=== PATIENT | female | born 1990 | race Caucasian/White ===

== ENCOUNTER 2017-02-22 09:53 | Emergency (ER) | payer OTHER ==
[~2017-02-22] VITALS: Ht 154.9 cm; Wt 52.0 kg
[~2017-02-22 09:53] MED LIST: ACID1TAB10 PO; OMEP20CA3 PO; SUCR1TA PO
[2017-02-22] MEDS ORDERED: PROTPAK PO (10:08)
[2017-02-22] MEDS ORDERED: ONDANSETRON 4MG/2ML VIAL (J2405) IV ONE (10:45)
[2017-02-22] MEDS ORDERED: MORPHINE 4 MG/ML 1ML SYRINGE IV PRN (10:45)
[2017-02-22] MEDS ORDERED: CLINDAMYCIN 900 MG in APPROPRIATE DILUENT 1 EA IV ONE (10:45)
[2017-02-22] MEDS ORDERED: NS 1,000 ML IV ONE (10:45)
[2017-02-22 11:10] LABS: BASO % 0.4 % (0.0-1.0); EOS % 2.8 % (0.0-3.0); LARGE UNSTAINED CELL % 0.7 % (0.0-4.0); LYMPH % 6.6 % (24.0-44.0); MEAN CORPUSCULAR HEMOGLOBIN 21.5 pg (27.0-33.0); MEAN CORPUSCULAR HGB CONC 29.3 g/dl (32.0-36.5); MEAN CORPUSCULAR VOLUME 73.5 fl (80.0-96.0); MONO % 2.9 % (0.0-5.0); NEUTROPHILS # 10.9 K/mm3 (1.8-7.7); NEUTROPHILS % 86.6 % (36.0-66.0); PLATELET COUNT, AUTOMATED 166 k/mm3 (150-450); RED CELL DISTRIBUTION WIDTH 15.7 % (11.5-14.5); WHITE BLOOD COUNT 12.6 K/mm3 (4.0-10.0)
[2017-02-22 11:11] LABS: ADD MANUAL DIFFER NO; BASO # 0.1 K/mm3 (0.0-0.2); DIFF SLIDE NUMBER 186; EOS # 0.4 K/mm3 (0.0-0.50); LARGE UNSTAINED CELL # 0.1 K/mm3 (0.0-0.4); LYMPH # 0.8 K/mm3 (1.5-6.5); MONO # 0.4 K/mm3 (0.0-0.8)
[2017-02-22 11:55] LABS: ERYTHROCYTE SEDIMENTATION RATE 54 mm/hr (0-20)
[2017-02-22] MEDS ORDERED: EMLA CREAM 5GM (LIDOCAINE/PRILOCAINE) TOP STA (12:13)
[2017-02-22 13:22] LABS: ALBUMIN 3.2 GM/DL (3.2-5.2); ALBUMIN/GLOBULIN RATIO 0.94 (1.00-1.93); ALKALINE PHOSPHATASE 138 U/L (45-117); ALT/SGPT 20 U/L (12-78); ANION GAP 9 MEQ/L (8-16); AST/SGOT 18 U/L (15-37); BILIRUBIN,DIRECT 0.2 MG/DL (0.0-0.2); BILIRUBIN,TOTAL 0.4 MG/DL (0.2-1.0); BLOOD UREA NITROGEN 8 MG/DL (7-18); CALCIUM LEVEL 8.2 MG/DL (8.5-10.1); CARBON DIOXIDE LEVEL 26 MEQ/L (21-32); CHLORIDE LEVEL 103 MEQ/L (98-107); CREATININE FOR GFR 0.54 MG/DL (0.55-1.02); GLOMERULAR FILTRATION RATE > 60.0 (>60); GLUCOSE, FASTING 80 MG/DL (70-105); POTASSIUM SERUM 3.6 MEQ/L (3.5-5.1); SODIUM LEVEL 138 MEQ/L (136-145); TOTAL PROTEIN 6.6 GM/DL (6.4-8.2)
[2017-02-22] MEDS ORDERED: HYDROmorphone HCL 1 MG/ML SYRINGE (J1170) IV ONE (13:30)
[2017-02-22] MEDS ORDERED: diphenhydrAMINE INJ 50MG/ML VIAL (J1200) IV ONE (13:30)
[2017-02-22] MEDS ORDERED: ACET30TAB PO (13:31)
[2017-02-22] MEDS ORDERED: CLEO300C2 PO (13:31)
[2017-02-22 13:49] VITALS: BP 132/74
== END 2017-02-22 13:50 | disposition home or self-care (01) ==
LOC: M ED 13:39
DX: T22.292A Burn of second degree of multiple sites of left shoulder and upper limb, except wrist and hand, initial encounter (principal); L03.114 Cellulitis of left upper limb; F17.210 Nicotine dependence, cigarettes, uncomplicated; X10.2XXA Contact with fats and cooking oils, initial encounter; Y92.89 Other specified places as the place of occurrence of the external cause; Y93.89 Activity, other specified; Y99.9 Unspecified external cause status

== ENCOUNTER 2017-02-26 04:00 | Inpatient (IN) | payer OTHER ==
[~2017-02-26] VITALS: Ht 154.9 cm; Wt 53.0 kg
[~2017-02-26 04:00] MED LIST changes: +ACET30TAB PO; +CLEO300C2 PO; +PROTPAK PO
[2017-02-26 05:13] LABS: ADD MORPHOLOGY? YES; BASO % 0.3 % (0.0-1.0); EOS # 0.4 K/mm3 (0.0-0.50); EOS % 7.2 % (0.0-3.0); LARGE UNSTAINED CELL # 0.1 K/mm3 (0.0-0.4); LYMPH # 0.9 K/mm3 (1.5-6.5); LYMPH % 13.4 % (24.0-44.0); MEAN CORPUSCULAR HEMOGLOBIN 21.4 pg (27.0-33.0); MEAN CORPUSCULAR VOLUME 73.5 fl (80.0-96.0); MONO # 0.3 K/mm3 (0.0-0.8); MONO % 5.5 % (0.0-5.0); NEUTROPHILS # 4.3 K/mm3 (1.8-7.7); NEUTROPHILS % 71.6 % (36.0-66.0); PLATELET COUNT, AUTOMATED 231 k/mm3 (150-450); RED CELL DISTRIBUTION WIDTH 16.3 % (11.5-14.5)
[2017-02-26 05:15] LABS: ANION GAP 4 MEQ/L (8-16); BLOOD UREA NITROGEN 9 MG/DL (7-18); CALCIUM LEVEL 8.5 MG/DL (8.5-10.1); CARBON DIOXIDE LEVEL 30 MEQ/L (21-32); CHLORIDE LEVEL 104 MEQ/L (98-107); CREATININE FOR GFR 0.52 MG/DL (0.55-1.02); GLOMERULAR FILTRATION RATE > 60.0 (>60); GLUCOSE, FASTING 90 MG/DL (70-105); POTASSIUM SERUM 4.7 MEQ/L (3.5-5.1); SODIUM LEVEL 138 MEQ/L (136-145)
[2017-02-26] MEDS ORDERED: PIPERACILLIN/TAZOBACTAM SOD 3.375 GM in D5W MINI-BAG PLUS 50 ML IV ONE (05:45)
[2017-02-26] MEDS ORDERED: ONDANSETRON 4MG/2ML VIAL (J2405) IV ONE (06:00)
[2017-02-26] MEDS ORDERED: diphenhydrAMINE INJ 50MG/ML VIAL (J1200) As Ordered ONE (06:04)
[2017-02-26] MEDS: MORPHINE 4 MG/ML 1ML SYRINGE IV PRN ×2 (06:12→08:11)
[2017-02-26] MEDS ORDERED: diphenhydrAMINE INJ 50MG/ML VIAL (J1200) IV ONE (06:15)
[2017-02-26] MEDS ORDERED: PROT1TAB2 PO (06:37)
[2017-02-26] MEDS ORDERED: CLEO300C2 PO (06:39)
[2017-02-26] MEDS ORDERED: ACET30TAB PO (06:39)
--- NOTE | 2017-02-26 06:46 | HPEPDOC ---
General Date of Admission Other Providers NONE Attending Physician: SKIP BREWSTER MD Chief Complaint The patient is a 27-year-old female admitted with a reason for visit of Infection In Burn. Source: Patient Exam Limitations: No limitations Timing/Duration: Day(s) (2 days), Getting worse Severity: Severe Associated Symptoms: Fever, Chills, Rash, Weakness History of Present Illness 27-year-old female had a stress from the [place]OT [place] and burned her left arm. She came to the emergency room and given clindamycin and sent back to the home, but her the swelling and that necessary Is Spreading and It Is Becoming More and More Painful. CAD Done Today Emergency Room with More Redness and Worsening of Cellulitis Home Medications Scheduled Pantoprazole Sodium Sesquihydr (Protonix) 40 Mg Tab, 40 MG PO BID, (Reported) Sucralfate (Carafate) 1 Gm Tab, 1 GM PO ACHS, (Reported) Allergies Coded Allergies: Cefazolin (Verified Allergy, Unknown, "feel weird", 02/22/17) Ibuprofen (Verified Allergy, Unknown, due to Gastric Bypass, 02/22/17) Past Medical History Medical History None Surgical History and history of bypass perforated small bowel and repair, cholecystectomy Family History Significant Family History: No pertinent family hx Social History * Smoker: less than 1 pack/day Alcohol: Denies Drugs: denies Recent Travel/Sick Contacts: Denies: Recent travel, Recent sick contacts Psychosocial History: No pertinent psych hx Review of Symptoms Constitutional: Denies: Chills, Fever, Night Sweats Eyes: Denies: Pain, Vision change ENT: Denies: Head Aches, Ear Pain, Dysphagia Skin: Denies: Rash, Lesions, Breakdown Pulmonary: Denies: Dyspnea, Cough Cardiovascular: Denies: Chest Pain, Palpitations, Orthopnea, Paroxysmal Noc. Dyspnea, Lt Headedness Gastrointestinal: Denies: Nausea, Vomiting, Abdominal Pain, Diarrhea Genitourinary: Denies: Dysuria, Frequency, Incontinence, Retention Hematologic: Denies: Bruising, Bleeding Excessively Musculoskeletal: Reports: Arm Pain, Other Symptoms (redness, swelling), Denies: Neck Pain, Back Pain, Joint Pain, Muscle Pain, Spasms Neurological: Denies: Weakness, Numbness, Change in speech, Confusion Psych: Reports: Mood Normal, Denies: Depression, Memory Issues Physical Examination General Exam: Positive: Alert, No Acute Distress Eye Exam: Positive: PERRLA, Conjunctiva & lids normal, EOMI, Negative: Sclera icteric ENT Exam: Positive: Atraumatic, Mucous membr. moist/pink, Pharynx Normal Neck Exam: Positive: Supple, Negative: JVD, thyromegaly Chest Exam: Positive: Clear to auscultation, Normal air movement Heart Exam: Positive: Rate Normal, Regular Rhythm, Normal S1, Normal S2, Negative: Murmurs, Rubs Telemetry: Positive: No significant arrhythmia Abdomen Exam: Positive: Normal bowel sounds, Soft, Negative: Tenderness, Hepatospenomegaly Extremity Exam: Positive: Edema, Normal pulses, Tenderness, Swelling, Other ( multiple bruises and eRYTHema over the whole arm), Negative: Clubbing, Cyanosis Skin Exam: Positive: Nl turgor and temperature, Negative: Breakdown, Lesion Neuro Exam: Positive: Normal Speech, Cranial Nerves 3-12 NL, Reflexes 2+ Psych Exam: Positive: Mental status NL, Mood NL, Oriented x 3 Vital Signs Vital Signs Date Time Temp Pulse Resp B/P (MAP) Pulse Ox O2 Delivery O2 Flow Rate FiO2 02/26/17 06:12 70 20 138/58 100 Room Air 02/26/17 04:17 98.2 Laboratory Data Labs 24H Laboratory Tests 2 02/26/17 04:47: White Blood Count 6.0, Red Blood Count 4.27, Hemoglobin 9.1L, Hematocrit 31.4L, Mean Corpuscular Volume 73.5L, Mean Corpuscular Hemoglobin 21.4L, Mean Corpuscular Hemoglobin Concent 29.0L, Red Cell Distribution Width 16.3H, Platelet Count 231, Neutrophils (%) (Auto) 71.6H, Lymphocytes (%) (Auto) 13.4L, Monocytes (%) (Auto) 5.5H, Eosinophils (%) (Auto) 7.2H, Basophils (%) (Auto) 0.3 , Neutrophils # (Auto) 4.3, Lymphocytes # (Auto) 0.9L, Monocytes # (Auto) 0.3, Eosinophils # (Auto) 0.4, Basophils # (Auto) 0.0, Large Unclassified Cells % 2.0 , Large Unclassified Cells # 0.1 02/26/17 04:48: Anion Gap 4L, Glomerular Filtration Rate > 60.0, Blood Urea Nitrogen 9, Creatinine 0.52L, Sodium Level 138, Potassium Level 4.7, Chloride Level 104, Carbon Dioxide Level 30, Calcium Level 8.5, C-Reactive Protein, Quantitative 3.88H CBC/BMP Laboratory Tests 02/26/17 04:47 Red Blood Count 4.27, Mean Corpuscular Volume 73.5 L, Mean Corpuscular Hemoglobin 21.4 L, Mean Corpuscular Hemoglobin Concent 29.0 L, Red Cell Distribution Width 16.3 H, Neutrophils (%) (Auto) 71.6 H, Lymphocytes (%) (Auto ) 13.4 L, Monocytes (%) (Auto) 5.5 H, Eosinophils (%) (Auto) 7.2 H, Basophils (% ) (Auto) 0.3, Neutrophils # (Auto) 4.3, Lymphocytes # (Auto) 0.9 L, Monocytes # (Auto) 0.3, Eosinophils # (Auto) 0.4, Basophils # (Auto) 0.0 02/26/17 04:48 Calcium Level 8.5 Microbiology Microbiology 02/26/17 Blood Culture, Received Pending 02/26/17 Blood Culture, Received Pending Assessment/Plan 27-year-old female had a burn on left arm and the, not improved with outpatient clindamycin Problems (1) Cellulitis of left upper extremity Status: Acute Problem Specific Plan: Consult Specialist Problem Text: As started giving IV Zosyn and vancomycin. wound care Plan / VTE VTE Prophylaxis Ordered?: Yes Plan IVF: Continue Medications: Start Antibiotics Diagnostics: Repeat Labs in AM Anticipated Discharge: Home RONNY VALLE MD Feb 26, 2017 06:46
[2017-02-26 06:51] LABS: HYPOCHROMASIA 2+; MICROCYTOSIS 2+
--- NOTE | 2017-02-26 08:02 | PHACANCOPD ---
PHARMACY VANCOMYCIN DOSING Pt Demographics Demographics Patient Age:27 , Weight:53.000 , Gender: female Adjusted Body Weight Date: 02/26/17, Adjusted Body Weight: Kg Events Past 24 Hours Events Past 24 Hours: NO: Dialysis, Diuretic Therapy, Change in CrCl, Fever, Elevation in WBC, Pending Diagnostics, Pending Procedures, Other Vancomycin Vancomycin indication: CELLULITIS Vancomycin Target Ranges: 15-20 mcg/ml Vancomycin Load Y/N: No Load Dose Date Time Vancomycin Load Dose: Date: Time: Vancomycin Dose Date: 02/26/17. Current Vancomycin Dose: [1000MG IV Q8H @ 0800] Intermittent Dosing?: No Labs Labs Item Value Date Time White Blood Count 6.0 K/mm3 02/26/17 0447 Creatinine 0.52 MG/DL L 02/26/17 0448 Micro Microbiology 02/26/17 Blood Culture, Received Pending 02/26/17 Blood Culture, Received Pending Creatinine Clearance Date:02/26/17. Creatinine Clearance: [>100ML/MIN]. Pending Labs VANCO TROUGH @ 0700 Assessment and Plan Maintaining Current Dose?: Yes Reason for dose change: No Dose Change Pharmacist Note Pharmacist Note Date: 02/26/17. Pharmacist note: Patient is a 27 yo female presenting with cellulitis and failed a previous therapy with clindamycin. Vanco 1 gram q8h was initiated @ 0800. Trough is scheduled to be drawn after the 3rd dose (02/27 @ 0700). Monitor renal function and adjust dosing as needed. KATIE GILLESPIE PHARMACY Feb 26, 2017 08:02
[2017-02-26] MEDS: VANCOMYCIN HCL 1,000 MG, VIAL MATE ADAPTER 1 EACH in D5W 250 ML IV SCH ×2 (08:10→15:24)
[2017-02-26] MEDS: NICOTINE 14 MG/24 HR TRANSDERMAL TD SCH (09:21)
[2017-02-26] MEDS ORDERED: NS 1,000 ML IV SCH (09:30)
[2017-02-26] MEDS ORDERED: PIPERACILLIN/TAZOBACTAM SOD 3.375 GM in D5W MINI-BAG PLUS 50 ML IV SCH (12:00)
[2017-02-26 14:52] LABS: CONTROL LINE HCG INT CTR LINE PRESENT
[2017-02-26] MEDS: PERCOCET 5MG/325MG TAB PO PRN ×2 (15:22→20:09)
[2017-02-26] MEDS ORDERED: ISOVUE-370 76% 100ML VIAL (Q9967) As Ordered ONE (16:10)
--- NOTE | 2017-02-26 17:11 | REP ---
Clinical: Cellulitis. Technique: Axial contrast enhanced images of the left upper extremity using 100 ml Isovue 370 intravenous contrast material with coronal and sagittal re-formations. Findings: Subcutaneous infiltration is consistent with cellulitis. The underlying muscular compartments appear intact and without intramuscular or tessie fascial collection/inflammatory changes. No abscess. The osseous structures appear intact and without periosteal reaction to suggest osteomyelitis by current examination. Impression: Findings compatible with cellulitis. No drainable collection/abscess or osseous involvement appreciated by current examination. Signed by Butch Stewart MD 02/26/2017 05:02 P
[2017-02-26] MEDS: SILVER SULFADIAZINE 1% CR 50 GM JAR TOP SCH (18:04)
[2017-02-26] MEDS: MORPHINE 2 MG/ML 1ML SYRINGE IV PRN (18:05)
[2017-02-26] MEDS: ONDANSETRON 4MG/2ML VIAL (J2405) IV PRN (20:08)
[2017-02-26 22:00] VITALS: BP 118/57
[2017-02-27] MEDS: VANCOMYCIN HCL 1,000 MG, VIAL MATE ADAPTER 1 EACH in D5W 250 ML IV SCH ×4 (00:11→23:59)
[2017-02-27] MEDS: MORPHINE 2 MG/ML 1ML SYRINGE IV PRN ×4 (00:11→21:48)
[2017-02-27] MEDS: PERCOCET 5MG/325MG TAB PO PRN ×3 (02:52→21:47)
[2017-02-27 06:00] VITALS: BP 118/81
[2017-02-27 07:29] LABS: MEAN CORPUSCULAR HEMOGLOBIN 21.1 pg (27.0-33.0); MEAN CORPUSCULAR HGB CONC 28.2 g/dl (32.0-36.5); MEAN CORPUSCULAR VOLUME 74.8 fl (80.0-96.0); RED CELL DISTRIBUTION WIDTH 16.4 % (11.5-14.5); RETIC HEMOGLOBIN CONTENT CHr 23.6 PG (24-36); RETICULOCYTE % 1.3 % (0.5-1.5); WHITE BLOOD COUNT 5.2 K/mm3 (4.0-10.0)
[2017-02-27 07:49] LABS: ALBUMIN 2.4 GM/DL (3.2-5.2); ALBUMIN/GLOBULIN RATIO 0.73 (1.00-1.93); ALKALINE PHOSPHATASE 127 U/L (45-117); ALT/SGPT 30 U/L (12-78); ANION GAP 6 MEQ/L (8-16); AST/SGOT 29 U/L (15-37); BILIRUBIN,TOTAL 0.1 MG/DL (0.2-1.0); BLOOD UREA NITROGEN 8 MG/DL (7-18); CALCIUM LEVEL 7.6 MG/DL (8.5-10.1); CARBON DIOXIDE LEVEL 28 MEQ/L (21-32); CHLORIDE LEVEL 105 MEQ/L (98-107); CREATININE FOR GFR 0.54 MG/DL (0.55-1.02); FERRITIN 24 NG/ML (8-252); GLOMERULAR FILTRATION RATE > 60.0 (>60); GLUCOSE, FASTING 86 MG/DL (70-105); PERCENT SATURATION 3.9 % (13.2-37.4); POTASSIUM SERUM 4.3 MEQ/L (3.5-5.1); SODIUM LEVEL 139 MEQ/L (136-145); TOTAL IRON BINDING CAPACITY 285 UG/DL (250-450); TOTAL PROTEIN 5.7 GM/DL (6.4-8.2)
[2017-02-27] MEDS: FERROUS SULFATE 325MG TAB PO SCH ×3 (08:52→21:01)
[2017-02-27] MEDS: SILVER SULFADIAZINE 1% CR 50 GM JAR TOP SCH (08:53)
[2017-02-27] MEDS: NICOTINE 14 MG/24 HR TRANSDERMAL TD SCH (08:57)
[2017-02-27] MEDS: PANTOPRAZOLE 40MG TAB (PROTONIX) PO SCH ×2 (10:45→21:01)
[2017-02-27] MEDS: SUCRALFATE 1 GM TAB PO SCH ×3 (13:17→21:01)
[2017-02-27 14:00] VITALS: BP 113/61
--- NOTE | 2017-02-27 14:06 | IPNPDOC ---
Text Note Date of Service The patient was seen on 02/27/17. NOTE Subjective: Pt states swelling and redness is improving. Objective: Vitals: (see below) General: No acute distress, laying comfortably in bed. HEENT: Moist mucous membranes. Neck: No JVD or lymphadenopathy Cardiac: RRR, No murmurs Pulm: Clear to auscultation b/l. No wheezing, rhonchi Abd: NT/ND + BS Ext: Left arm with abrasions, swelling, redness which is marked on admission and improving. Distal pulses improved. No cyanosis. Labs (see below) Images: CT Left arm 02/26/17 Impression: Findings compatible with cellulitis. No drainable collection/abscess or osseous involvement appreciated by current examination. Assessment/Plan 1. Left arm cellulitis- patient states that she had burn from hot grease that pored over while she was carrying the fowler. Questionable whether this is related to a burn given her a distribution of abrasions which may reflect deep scratch ag. Failed outpt therapy. On vancomycin. Zosyn discontinued. Inflammatory markers improving. Areas of cellulitis/erythema/swelling improving. Blood cultures pending. CT Left arm (see above) Dr. Melissa consulted. 2. History of substance abuse- drug screen sent. HIV screen as well as hepatitis C sent. Patient's did consent to HIV screen. 3. History of gastric bypass 4. History of grinding deficiency anemia status post gastric bypass- started on iron sulfate. We will monitor hemoglobin. If hemoglobin continues to decline, we 'll transfuse PRBC tomorrow. DVT prophy: Lovenox VS,Fishbone, I+O VS, Fishbone, I+O Laboratory Tests 02/27/17 06:45 Red Blood Count 3.65 L, Mean Corpuscular Volume 74.8 L, Mean Corpuscular Hemoglobin 21.1 L, Mean Corpuscular Hemoglobin Concent 28.2 L, Red Cell Distribution Width 16.4 H, Calcium Level 7.6 L, Aspartate Amino Transf (AST/SGOT ) 29, Alanine Aminotransferase (ALT/SGPT) 30, Alkaline Phosphatase 127 H, Total Bilirubin 0.1 L, Total Protein 5.7 L, Albumin 2.4 L Vital Signs Date Time Temp Pulse Resp B/P (MAP) Pulse Ox O2 Delivery O2 Flow Rate FiO2 02/27/17 09:13 16 02/27/17 06:00 98.5 71 118/81 (93) 97 Room Air 02/26/17 20:39 99 02/26/17 17:12 0.0 I&O- Last 24 Hours up to 6 AM 02/27/17 05:59 Intake Total 2750 ml Output Total 300 ml Balance 2450 ml SKIP BREWSTER MD Feb 27, 2017 14:06
--- NOTE | 2017-02-27 15:28 | PHACANCOPD ---
PHARMACY VANCOMYCIN DOSING Pt Demographics Demographics Patient Age:27 , Weight:53.000 , Gender: female Adjusted Body Weight Date: 02/26/17, Adjusted Body Weight: Kg Events Past 24 Hours Events Past 24 Hours: NO: Dialysis, Diuretic Therapy, Change in CrCl, Fever, Elevation in WBC, Pending Diagnostics, Pending Procedures, Other Vancomycin Vancomycin indication: CELLULITIS Vancomycin Target Ranges: 15-20 mcg/ml Vancomycin Load Y/N: No Load Dose Date Time Vancomycin Load Dose: Date: Time: Vancomycin Dose Date: 02/27/17. Current Vancomycin Dose: [1gm IV q8h@08] Date: 02/26/17. Current Vancomycin Dose: [1000MG IV Q8H @ 0800] Intermittent Dosing?: No Labs Labs Item Value Date Time Vancomycin Level Trough 17.6 UG/ML 02/27/1745 Creatinine 0.54 MG/DL L 02/27/1745 White Blood Count 5.2 K/mm3 02/27/17 0645 Vital Signs Label Value Date Time Patient Temperature 99.1 degrees F 02/27/17 1400 Temperature Source Core 02/27/17 1400 Micro Microbiology 02/26/17 Blood Culture - Preliminary, Resulted No growth after 24 hours . All specim... 02/26/17 Blood Culture - Preliminary, Resulted No growth after 24 hours . All specim... Creatinine Clearance Date:02/26/17. Creatinine Clearance: [>100ML/MIN]. Pending Labs VANCO TROUGH @ 0700 Assessment and Plan Maintaining Current Dose?: Yes Reason for dose change: No Dose Change Pharmacist Note Pharmacist Note 02/27: patient's trough came back at 17.6 today. This is within target range so we will continue Vancomycin 1gm IV q8h. Blood cultures are still pending, but no growth to date. We will continue to monitor and make adjustments as necessary. Date: 02/26/17. Pharmacist note: Patient is a 27 yo female presenting with cellulitis and failed a previous therapy with clindamycin. Vanco 1 gram q8h was initiated @ 0800. Trough is scheduled to be drawn after the 3rd dose (02/27 @ 0700). Monitor renal function and adjust dosing as needed. ISAC TURPIN PHARMACY Feb 27, 2017 15:28
[2017-02-27] MEDS: ENOXAPARIN 40 MG/0.4 ML SYRINGE (J1650) SC SCH (15:58)
[2017-02-27] MEDS: ONDANSETRON 4MG/2ML VIAL (J2405) IV PRN (15:58)
[2017-02-27 22:00] VITALS: BP 119/73
[2017-02-27] MEDS ORDERED: diphenhydrAMINE 25 MG CAP PO ONE (22:45)
[2017-02-28] MEDS: PERCOCET 5MG/325MG TAB PO PRN ×3 (01:51→21:13)
[2017-02-28] MEDS: MORPHINE 2 MG/ML 1ML SYRINGE IV PRN ×3 (04:10→17:55)
[2017-02-28 06:00] VITALS: BP 100/67
[2017-02-28 06:32] LABS: MEAN CORPUSCULAR HEMOGLOBIN 21.9 pg (27.0-33.0); MEAN CORPUSCULAR HGB CONC 29.6 g/dl (32.0-36.5); RED CELL DISTRIBUTION WIDTH 16.3 % (11.5-14.5); WHITE BLOOD COUNT 4.6 K/mm3 (4.0-10.0)
[2017-02-28 06:53] LABS: ALBUMIN 2.3 GM/DL (3.2-5.2); ALBUMIN/GLOBULIN RATIO 0.68 (1.00-1.93); ALKALINE PHOSPHATASE 120 U/L (45-117); ALT/SGPT 31 U/L (12-78); ANION GAP 5 MEQ/L (8-16); AST/SGOT 21 U/L (15-37); BILIRUBIN,TOTAL 0.2 MG/DL (0.2-1.0); BLOOD UREA NITROGEN 6 MG/DL (7-18); CALCIUM LEVEL 8.1 MG/DL (8.5-10.1); CARBON DIOXIDE LEVEL 31 MEQ/L (21-32); CHLORIDE LEVEL 105 MEQ/L (98-107); GLOMERULAR FILTRATION RATE > 60.0 (>60); GLUCOSE, FASTING 80 MG/DL (70-105); POTASSIUM SERUM 4.2 MEQ/L (3.5-5.1); SODIUM LEVEL 141 MEQ/L (136-145); TOTAL PROTEIN 5.7 GM/DL (6.4-8.2)
--- NOTE | 2017-02-28 08:12 | CR ---
DATE OF CONSULTATION: 02/27/2017 Asked to consult by Dr. Prather for evaluation of left arm cellulitis. HISTORY OF PRESENT ILLNESS: Rebecca is a 27-year-old female with a history of burn to the left arm with hot grease when she was cooking tater tots in hot oil. She tripped over the cord from the cooker machine and the oil burned her. She came to the emergency room and was given clindamycin. She went home but the swelling got worse. It became more painful. She developed some fever. The patient was admitted and started on IV vancomycin and Zosyn. She denies any nausea, vomiting or diarrhea. The patient has a history of gastric bypass for which she has had multiple complications of bowel obstructions. PAST MEDICAL HISTORY: Morbid obesity status post gastric bypass. History of peptic ulcer disease and bowel obstructions from gastric bypass. PAST SURGICAL HISTORY: . Bypass with perforated small bowel and repair. SOCIAL HISTORY: She smokes less than a pack a day. She denies alcohol use or drug use. She is in the room with her boyfriend who is falling asleep and she is falling asleep as well when being interview. MEDICATIONS: - Protonix 40 mg by mouth twice daily - Carafate 1 gram by mouth four times daily - ferrous sulfate 325 mg by mouth three times daily - Lovenox 40 mg subcu daily - Zofran as needed - Percocet as needed pain - nicotine patch one patch daily - Silvadene 1% topical twice daily - vancomycin 1 gram IV every 8 hours - Zosyn 3.375 grams IV every 6 hours LABORATORY DATA: When she came to the emergency room on first visit after the burn February 22, her white count was 12.6. Today white count is 6, hemoglobin 9.1, hematocrit 31.4, platelets 231, 71% neutrophils, 13% lymphocytes, 5% monocytes. Sodium 138, potassium 4.7, chloride 104, bicarb 30, BUN 9, creatinine 0.52, glucose 90, calcium 8.5, CRP 3.88. Blood cultures two sets drawn were pending. IMAGING: Upper extremity CT on since February 26 compatible with cellulitis with no drainable collection or abscesses. PHYSICAL EXAMINATION: The patient falling asleep when being interviewed but otherwise alert and oriented times three. She has been afebrile. Heart: Normal S1, S2. No murmurs, rubs or gallops. Lungs are clear. No wheezes, rales or rhonchi. Abdomen: Soft, mildly tender in the epigastric area. No rebound. No hepatosplenomegaly. Back: No CVA tenderness. Extremities: No clubbing, cyanosis or edema. Multiple tattoos. Left upper extremity has erythema extending from the wrist all the way to the mid arm. She has multiple linear distribution of scabs that she claims are related to her burn but they are in a linear fashion about four of them. There is tenderness. No adenopathy. IMPRESSION: This is a 27-year-old female who had a grease burn and has developed left arm cellulitis. She seems to have had some scratch ag that could have spread the infection. The patient is allergic to cefazolin and I would not recommend using Zosyn as there is no need for broad-spectrum antibiotic coverage. PLAN: 1. Continue with IV vancomycin, this is probably just staph infection. 2. Discontinue IV Zosyn. The patient is allergic to cefazolin and complaining of itching. 3. Continue IV vancomycin 1 gram every 8 hours. Keep vancomycin trough between 15 and 20. The patient has no known previous history of Methicillin-resistant staphylococcus aureus (MRSA). Warm pack left arm and elevate. Will obtain Methicillin-resistant staphylococcus aureus (MRSA) screen. Will continue to follow. Suggest obtaining hepatitis C and HIV testing as well as a drug screen. The patient is very sedated.
[2017-02-28] MEDS: PANTOPRAZOLE 40MG TAB (PROTONIX) PO SCH ×2 (08:42→21:12)
[2017-02-28] MEDS: VANCOMYCIN HCL 1,000 MG, VIAL MATE ADAPTER 1 EACH in D5W 250 ML IV SCH ×2 (08:43→15:25)
[2017-02-28] MEDS: SILVER SULFADIAZINE 1% CR 50 GM JAR TOP SCH (08:43)
[2017-02-28] MEDS: SUCRALFATE 1 GM TAB PO SCH ×4 (08:43→21:13)
[2017-02-28] MEDS: FERROUS SULFATE 325MG TAB PO SCH ×3 (08:43→21:13)
[2017-02-28] MEDS: ENOXAPARIN 40 MG/0.4 ML SYRINGE (J1650) SC SCH ×2 (08:43→08:45)
[2017-02-28] MEDS: NICOTINE 14 MG/24 HR TRANSDERMAL TD SCH (08:43)
[2017-02-28 14:00] VITALS: BP 113/58
--- NOTE | 2017-02-28 15:02 | IPNPDOC ---
Text Note Date of Service The patient was seen on 02/28/17. NOTE Subjective: Pt states swelling and redness continues to improve. Objective: Vitals: (see below) General: No acute distress, laying comfortably in bed. HEENT: Moist mucous membranes. Neck: No JVD or lymphadenopathy Cardiac: RRR, No murmurs Pulm: Clear to auscultation b/l. No wheezing, rhonchi Abd: NT/ND + BS Ext: Left arm with abrasions, swelling, redness which is marked on admission and improving. Distal pulses improved. No cyanosis. Labs (see below) Images: CT Left arm 02/26/17 Impression: Findings compatible with cellulitis. No drainable collection/abscess or osseous involvement appreciated by current examination. Assessment/Plan 1. Left arm cellulitis- patient states that she had burn from hot grease that pored over while she was carrying the fowler. Questionable whether this is related to a burn given her a distribution of abrasions which may reflect deep scratch ag. Failed outpt therapy. On vancomycin. Zosyn discontinued. Inflammatory markers improving. Areas of cellulitis/erythema/swelling improving. Blood cultures pending. CT Left arm (see above) Dr. Melissa consulted. 2. History of substance abuse- drug screen sent. HIV screen as well as hepatitis C negative. Patient did consent to HIV screen. 3. History of gastric bypass 4. History of Iron deficiency anemia status post gastric bypass- started on iron sulfate. We will monitor hemoglobin. PRBC transfusion. DVT prophy: SCDs VS,Fishbone, I+O VS, Fishbone, I+O Laboratory Tests 02/28/17 05:58 Red Blood Count 3.52 L, Mean Corpuscular Volume 74.0 L, Mean Corpuscular Hemoglobin 21.9 L, Mean Corpuscular Hemoglobin Concent 29.6 L, Red Cell Distribution Width 16.3 H, Calcium Level 8.1 L, Aspartate Amino Transf (AST/SGOT ) 21, Alanine Aminotransferase (ALT/SGPT) 31, Alkaline Phosphatase 120 H, Total Bilirubin 0.2 #, Total Protein 5.7 L, Albumin 2.3 L Vital Signs Date Time Temp Pulse Resp B/P (MAP) Pulse Ox O2 Delivery O2 Flow Rate FiO2 02/28/17 10:51 16 02/28/17 06:00 98.3 58 100/67 (78) 98 Room Air 02/26/17 20:39 99 02/26/17 17:12 0.0 I&O- Last 24 Hours up to 6 AM 02/28/17 06:00 Intake Total 2230 ml Output Total 4800 ml Balance -2570 ml SKIP BREWSTER MD Feb 28, 2017 15:02
[2017-02-28] MEDS ORDERED: diphenhydrAMINE 25 MG CAP PO ONE (21:00)
[2017-02-28 22:00] VITALS: BP 121/81
[2017-03-01] MEDS: VANCOMYCIN HCL 1,000 MG, VIAL MATE ADAPTER 1 EACH in D5W 250 ML IV SCH ×2 (00:17→09:05)
[2017-03-01] MEDS: MORPHINE 2 MG/ML 1ML SYRINGE IV PRN (00:44)
--- NOTE | 2017-03-01 03:03 | IPN ---
DATE OF SERVICE: 02/28/2017 Rebecca seems to be doing much better today. Her left arm swelling and redness has diminished. She has had no fever or chills. Now she is scratching and removing the scabs that have been annoying her. She states Silvadene cordova and she would like something else used. On physical exam, in no acute distress. Heart normal S1,S2. No murmurs. Lungs are clear. No wheezes, rales or rhonchi. Abdomen soft, nontender. Left arm with erythema markedly diminished, as well as tenderness. There are some scabs that she is peeling. They are in a linear distribution from oil burn. LABORATORY DATA: White count 4.6, hemoglobin 7.6, hematocrit 26, platelets 180. Sodium 141, potassium 4.2, chloride 105, bicarbonate 31, BUN 6, creatinine 0.6, glucose 80. IMPRESSION: 1. Left arm cellulitis on intravenous (IV) vancomycin. Doing much better. The patient could be switched to oral antibiotic tomorrow and discharged home. 2. History of substance abuse. The patient denies use recently. HIV and hepatitis C screen were negative. 3. History of gastric bypass with secondary iron deficiency. 4. Iron deficiency anemia. The patient has received 1 unit of packed red blood cells today for hemoglobin of 7.7. PLAN: The patient could be discharged home tomorrow on Bactrim one tablet by mouth twice a day for five more days. Would suggest discontinuing Silvadene, switch her to Aquaphor and wrap the arm with Kerlix so she avoids picking scabs.
[2017-03-01 06:00] VITALS: BP 104/60
[2017-03-01 06:30] LABS: MEAN CORPUSCULAR HEMOGLOBIN 23.1 pg (27.0-33.0); MEAN CORPUSCULAR HGB CONC 29.9 g/dl (32.0-36.5); MEAN CORPUSCULAR VOLUME 77.3 fl (80.0-96.0); RED CELL DISTRIBUTION WIDTH 17.8 % (11.5-14.5); WHITE BLOOD COUNT 5.7 K/mm3 (4.0-10.0)
[2017-03-01 06:52] LABS: ALBUMIN 2.3 GM/DL (3.2-5.2); ALBUMIN/GLOBULIN RATIO 0.62 (1.00-1.93); ALKALINE PHOSPHATASE 121 U/L (45-117); ALT/SGPT 27 U/L (12-78); ANION GAP 7 MEQ/L (8-16); AST/SGOT 16 U/L (15-37); BILIRUBIN,TOTAL 0.2 MG/DL (0.2-1.0); BLOOD UREA NITROGEN 8 MG/DL (7-18); CALCIUM LEVEL 7.9 MG/DL (8.5-10.1); CARBON DIOXIDE LEVEL 28 MEQ/L (21-32); CHLORIDE LEVEL 105 MEQ/L (98-107); CREATININE FOR GFR 0.67 MG/DL (0.55-1.02); GLOMERULAR FILTRATION RATE > 60.0 (>60); GLUCOSE, FASTING 126 MG/DL (70-105); POTASSIUM SERUM 3.4 MEQ/L (3.5-5.1); SODIUM LEVEL 140 MEQ/L (136-145)
[2017-03-01] MEDS ORDERED: POTASSIUM CHLORIDE 10 MEQ SR TABLET PO ONE (07:30)
[2017-03-01] MEDS ORDERED: AQUAOIN2 EX (07:38)
[2017-03-01] MEDS ORDERED: FERR1TAB8 PO (07:38)
[2017-03-01] MEDS ORDERED: BACT800T5 PO (07:38)
[2017-03-01] MEDS ORDERED: AQUAPHOR **100GM** OINT TOP SCH ×2 (09:00)
[2017-03-01] MEDS: PERCOCET 5MG/325MG TAB PO PRN (09:06)
[2017-03-01] MEDS: NICOTINE 14 MG/24 HR TRANSDERMAL TD SCH (09:06)
[2017-03-01] MEDS: FERROUS SULFATE 325MG TAB PO SCH (09:06)
[2017-03-01] MEDS: SUCRALFATE 1 GM TAB PO SCH (09:06)
[2017-03-01] MEDS: PANTOPRAZOLE 40MG TAB (PROTONIX) PO SCH (09:06)
--- NOTE | 2017-03-01 15:55 | DS.PDOC ---
Discharge Summary General Date of Admission Feb 26, 2017 at 06:31 Date of Discharge 03/01/17 Attending Physician: SKIP BREWSTER MD Specialist/Consultants Involve: Garrett Melissa MD Discharge Summary PROCEDURES PERFORMED DURING STAY: None. ADMITTING/DISCHARGE DIAGNOSES: 1. Cellulitis of left upper extremity with excoriations/wound noted. 2. History of substance abuse 3. History of gastric bypass 4. Iron deficiency anemia from gastric bypass, requiring 1 unit PRBC transfusion COMPLICATIONS/CHIEF COMPLAINT: Cellulitis Of Left Upper Extremity. HISTORY OF PRESENT ILLNESS/HOSPITAL COURSE: . This is a 27-year-old female with a past history of gastric bypass and iron deficiency anemia who presents stating that she had swelling and redness after spilling hot oil on her left arm from a fowler. Patient had initially presents to the ED and was given clindamycin however states symptoms have worsened. The patient return to the ER and was subsequently admitted. Patient was placed on vancomycin with significant improvement of swelling/erythema of the surrounding cellulitis. Patient tolerated therapy well. Patient was also evaluated by infectious disease with recommendations to switch patient to Bactrim by mouth as well as discharging the patient on Aquaphor cream and Kerlix cover. In addition patient does have an deficiency anemia which she says she has a history of gastric bypass. Patient also has a history of gastric ulcers which she has been following up with her Neurologist. Patient Has No Occult Bleeding at This Time. She did receive 1 Unit PRBC and tolerated it well. DISCHARGE MEDICATIONS: Please see below. ALLERGIES: Please see below. PHYSICAL EXAMINATION ON DISCHARGE: Vitals: (see below) General: No acute distress, laying comfortably in bed. HEENT: Moist mucous membranes. Neck: No JVD or lymphadenopathy Cardiac: RRR, No murmurs Pulm: Clear to auscultation b/l. No wheezing, rhonchi Abd: NT/ND + BS Ext: Left arm with excoriations, swelling, redness which is marked on admission and improving. Distal pulses improved. No cyanosis. LABORATORY DATA: Please see below. IMAGING: CT Left arm 02/26/17 Impression: Findings compatible with cellulitis. No drainable collection/abscess or osseous involvement appreciated by current examination. PROGNOSIS: Fair ACTIVITY: As tolerated. DIET: As tolerated DISCHARGE PLAN/DISPOSITION: Home, Self-Care. DISCHARGE INSTRUCTIONS: 1. Patient is to follow-up with her primary care physician 1-2 weeks. DISCHARGE CONDITION: Stable. TIME SPENT ON DISCHARGE: Greater than 30 minutes. Vital Signs/I&Os Vital Signs Date Time Temp Pulse Resp B/P (MAP) Pulse Ox O2 Delivery O2 Flow Rate FiO2 03/01/17 09:36 16 03/01/17 06:00 98.4 64 104/60 (75) 97 Room Air 02/26/17 20:39 99 02/26/17 17:12 0.0 I&O- Last 24 Hours up to 6 AM 03/01/17 06:00 Intake Total 1810 ml Output Total 1400 ml Balance 410 ml Laboratory Data Labs 24H Laboratory Tests 2 03/01/17 06:08: Anion Gap 7L, Glomerular Filtration Rate > 60.0, Blood Urea Nitrogen 8, Creatinine 0.67, Sodium Level 140, Potassium Level 3.4L, Chloride Level 105, Carbon Dioxide Level 28, Calcium Level 7.9L, Aspartate Amino Transf (AST/SGOT) 16, Alanine Aminotransferase (ALT/SGPT) 27, Alkaline Phosphatase 121H, Total Bilirubin 0.2, Total Protein 6.0L, Albumin 2.3L, Albumin/Globulin Ratio 0.62L CBC/BMP Laboratory Tests 03/01/17 06:08 Calcium Level 7.9 L, Aspartate Amino Transf (AST/SGOT) 16, Alanine Aminotransferase (ALT/SGPT) 27, Alkaline Phosphatase 121 H, Total Bilirubin 0.2 , Total Protein 6.0 L, Albumin 2.3 L 03/01/17 06:09 Red Blood Count 3.80 L, Mean Corpuscular Volume 77.3 L, Mean Corpuscular Hemoglobin 23.1 L, Mean Corpuscular Hemoglobin Concent 29.9 L, Red Cell Distribution Width 17.8 H Microbiology Microbiology 02/26/17 Blood Culture - Preliminary, Resulted No Growth after 72 hours. All specime... 02/26/17 Blood Culture - Preliminary, Resulted No Growth after 72 hours. All specime... 02/27/17 MRSA Screen - Final, Complete Discharge Medications Scheduled (Aquaphor) 1 Oin Oin, 1 OIN EX DAILY Ferrous Sulfate (Ferrous Sulfate) 325 Mg Tab, 325 MG PO TID Pantoprazole Sodium Sesquihydr (Protonix) 40 Mg Tab, 40 MG PO BID, (Reported) Sucralfate (Carafate) 1 Gm Tab, 1 GM PO ACHS, (Reported) Trimethoprim/Sulfamethoxazole (Bactrim Ds 800-160 mg) 1 Tab Tab, 1 TAB PO BID Scheduled PRN Acetaminophen/Codeine (Tylenol/Codeine #3) Tab, 1 TAB PO Q6H PRN for PAIN, ( Reported) Allergies Coded Allergies: Cefazolin (Verified Allergy, Unknown, "feel weird", 02/22/17) Ibuprofen (Verified Allergy, Unknown, due to Gastric Bypass, 02/22/17) SKIP BREWSTER MD Mar 01, 2017 15:55
== END 2017-03-01 11:20 | disposition home or self-care (01) | DRG 383 ==
LOC: M ED 04:55 → M ED INP 06:31 → M MS5PR 13:45
PROVIDERS: ADMIT Internal Medicine; ATTEND Internal Medicine
PROC: 30233N1 Transfusion of Nonautologous Red Blood Cells into Peripheral Vein, Percutaneous Approach (ICD-10-PCS; principal; 2017-02-28)
DX: L03.114 Cellulitis of left upper limb (principal); D50.9 Iron deficiency anemia, unspecified; F19.21 Other psychoactive substance dependence, in remission; F17.210 Nicotine dependence, cigarettes, uncomplicated; Z88.1 Allergy status to other antibiotic agents; Z98.84 Bariatric surgery status; Z79.899 Other long term (current) drug therapy; Z88.6 Allergy status to analgesic agent; Z90.49 Acquired absence of other specified parts of digestive tract

== ENCOUNTER 2017-04-03 21:22 | Emergency (ER) | payer OTHER ==
[~2017-04-03] VITALS: Ht 154.9 cm; Wt 48.6 kg
[~2017-04-03 21:22] MED LIST changes: +AQUAOIN2 EX; +BACT800T5 PO; +FERR1TAB8 PO; +PROT1TAB2 PO
[2017-04-03 21:23] VITALS: BP 146/91
== END 2017-04-03 22:50 | disposition left against medical advice (07) ==
LOC: M ED 21:22
DX: R42 Dizziness and giddiness (principal); Z53.29 Procedure and treatment not carried out because of patient's decision for other reasons

== ENCOUNTER → 2018-01-14 | Outpatient (CLI) | payer MEDICAID | LOC: M OUTALCOH 08:48 | DX: Z13.9 Encounter for screening, unspecified (principal); F15.20 Other stimulant dependence, uncomplicated ==

== ENCOUNTER 2018-02-06 13:26 | Emergency (ER) | payer MEDICAID, SELFPAY ==
[2018-02-06] MEDS: ONDANSETRON 4MG/2ML VIAL (J2405) IV (14:28)
[2018-02-06] MEDS: NS 1,000 ML IV (14:28)
[2018-02-06] MEDS: PANTOPRAZOLE 40MG INJ (PROTONIX) (C9113) IV (14:28)
[2018-02-06 14:29] LABS: BASO # 0.1 10^3/uL (0.0-0.2); EOS # 0.2 10^3/uL (0.0-0.50); EOS % 2.9 % (0.0-3.0); HEMATOCRIT 27.4 % (36.0-47.0); HEMOGLOBIN 7.4 g/dl (12.0-15.5); IMMATURE GRANULOCYTE % 0.2 % (0-3.0); LYMPH # 1.8 10^3/uL (1.5-6.5); LYMPH % 31.7 % (24.0-44.0); MEAN CORPUSCULAR HEMOGLOBIN 17.1 pg (27.0-33.0); MEAN CORPUSCULAR VOLUME 63.4 fl (80.0-96.0); MONO # 0.5 10^3/uL (0.0-0.8); NEUTROPHILS % 54.2 % (36.0-66.0); PLATELET COUNT, AUTOMATED 243 10^3/uL (150-450); RED BLOOD COUNT 4.32 10^6/uL (4.00-5.40); RED CELL DISTRIBUTION WIDTH 18.2 % (11.5-14.5); WHITE BLOOD COUNT 5.6 10^3/uL (4.0-10.0)
[2018-02-06 14:41] LABS: CONTROL LINE HCG INT CTR LINE PRESENT; HCG, SERUM QUALITATIVE NEGATIVE (NEGATIVE)
[2018-02-06 14:43] LABS: KETONE, URINE AUTO RFX NEGATIVE (NEGATIVE); LEUKOCYTE ESTERASE UR AUTO RFX NEGATIVE (NEGATIVE); NITRITE, URINE AUTO RFX NEGATIVE (NEGATIVE); RBC, URINE AUTO RFX 5 /HPF (0-3); SPECIFIC GRAVITY UR AUTO RFX 1.013 (1.002-1.035); SQUAM EPITHELIAL CELL UR AURFX 1 /HPF (0-6); WBC, URINE AUTO RFX 2 /HPF (0-3)
[2018-02-06 14:46] LABS: ALBUMIN 3.5 GM/DL (3.2-5.2); ALBUMIN/GLOBULIN RATIO 0.81 (1.00-1.93); ALKALINE PHOSPHATASE 120 U/L (45-117); ALT/SGPT 20 U/L (12-78); AMYLASE 100 U/L (25-115); ANION GAP 5 MEQ/L (8-16); AST/SGOT 17 U/L (7-37); BILIRUBIN,DIRECT < 0.1 MG/DL (0.0-0.2); BILIRUBIN,TOTAL 0.1 MG/DL (0.2-1.0); BLOOD UREA NITROGEN 12 MG/DL (7-18); CALCIUM LEVEL 8.5 MG/DL (8.5-10.1); CARBON DIOXIDE LEVEL 27 MEQ/L (21-32); CHLORIDE LEVEL 105 MEQ/L (98-107); CREATININE FOR GFR 0.64 MG/DL (0.55-1.30); GLOMERULAR FILTRATION RATE > 60.0 (>60); GLUCOSE, FASTING 94 MG/DL (70-100); LIPASE 308 U/L (73-393); SODIUM LEVEL 137 MEQ/L (136-145); TOTAL PROTEIN 7.8 GM/DL (6.4-8.2)
[2018-02-06 14:46] LABS: LACTIC ACID SEPSIS PROTOCOL 1.5 MMOL/L (0.4-2.0)
[2018-02-06 14:47] LABS: INR 0.99; PROTHROMBIN TIME 13.2 SECONDS (12.4-14.5)
[2018-02-06 14:53] LABS: AMPHETAMINES LEVEL URINE POSITIVE (NEGATIVE); BARBITURATES URINE NEGATIVE (NEGATIVE); BENZODIAZEPINES URINE NEGATIVE (NEGATIVE); CANNABINOIDS URINE NEGATIVE (NEGATIVE); COCAINE METABOLITE URINE NEGATIVE (NEGATIVE); METHADONE URINE NEGATIVE (NEGATIVE); OPIATES URINE POSITIVE (NEGATIVE); PHENCYCLIDINE URINE NEGATIVE (NEGATIVE)
== END 2018-02-06 16:22 | disposition home or self-care (01) ==
LOC: M ED 13:26
DX: R10.9 Unspecified abdominal pain (principal); K27.9 Peptic ulcer, site unspecified, unspecified as acute or chronic, without hemorrhage or perforation; Z98.84 Bariatric surgery status; Z88.1 Allergy status to other antibiotic agents; Z88.8 Allergy status to other drugs, medicaments and biological substances; Z79.899 Other long term (current) drug therapy
CPT/HCPCS: C9113

== ENCOUNTER 2018-05-27 00:02 | Observation (INO) | payer OTHER, MEDICAID ==
[2018-05-27] MEDS: NS 1,000 ML IV (01:27)
[2018-05-27] MEDS: KETOROLAC 30 MG/ML VIAL (J1885) IV (01:27)
[2018-05-27] MEDS: diphenhydrAMINE INJ 50MG/ML VIAL (J1200) IV (01:27)
[2018-05-27 01:30] LABS: BASO # 0.1 10^3/uL (0.0-0.2); BASO % 0.7 % (0.0-1.0); EOS # 0.2 10^3/uL (0.0-0.50); EOS % 3.4 % (0.0-3.0); HEMATOCRIT 26.3 % (36.0-47.0); IMMATURE GRANULOCYTE % 0.1 % (0-3.0); LYMPH # 2.4 10^3/uL (1.5-6.5); LYMPH % 34.4 % (24.0-44.0); MEAN CORPUSCULAR HEMOGLOBIN 16.4 pg (27.0-33.0); MEAN CORPUSCULAR HGB CONC 25.5 g/dl (32.0-36.5); MEAN CORPUSCULAR VOLUME 64.5 fl (80.0-96.0); MONO # 0.5 10^3/uL (0.0-0.8); MONO % 7.5 % (0.0-5.0); NEUTROPHILS # 3.8 10^3/uL (1.8-7.7); NEUTROPHILS % 53.9 % (36.0-66.0); PLATELET COUNT, AUTOMATED 153 10^3/uL (150-450); RED BLOOD COUNT 4.08 10^6/uL (4.00-5.40); RED CELL DISTRIBUTION WIDTH 20.7 % (11.5-14.5); WHITE BLOOD COUNT 7.1 10^3/uL (4.0-10.0)
[2018-05-27 01:34] LABS: CONTROL LINE HCG INT CTR LINE PRESENT; HCG, SERUM QUALITATIVE NEGATIVE (NEGATIVE)
[2018-05-27 01:34] LABS: LACTIC ACID SEPSIS PROTOCOL 0.9 MMOL/L (0.4-2.0)
[2018-05-27 01:35] LABS: HEMOGLOBIN 6.7 g/dl (12.0-15.5); POSITIVE MORPH POS FLAG
[2018-05-27] MEDS: METOCLOPRAMIDE INJ 10MG/2ML VIAL (J2765) IV (01:37)
[2018-05-27 01:40] LABS: ANION GAP 5 MEQ/L (8-16); BLOOD UREA NITROGEN 19 MG/DL (7-18); CALCIUM LEVEL 8.5 MG/DL (8.5-10.1); CARBON DIOXIDE LEVEL 29 MEQ/L (21-32); CHLORIDE LEVEL 105 MEQ/L (98-107); CPK CREATINE PHOSPHOKINASE 99 U/L (26-192); GLOMERULAR FILTRATION RATE > 60.0 (>60); GLUCOSE, FASTING 84 MG/DL (70-100); MAGNESIUM LEVEL 2.2 MG/DL (1.8-2.4); MB/CK RELATIVE INDEX 1.41 (< OR =4); SODIUM LEVEL 139 MEQ/L (136-145); TROPONIN I < 0.02 NG/ML (< 0.10)
[2018-05-27 01:56] LABS: RETICULOCYTE % 0.6 % (0.5-1.5)
[2018-05-27] MEDS ORDERED: ISOVUE-370 76% 100ML VIAL (Q9967) As Ordered ×2 (03:09→19:54)
[2018-05-27] MEDS ORDERED: IPRATROPIUM 0.5MG/ALBUTEROL 2.5MG INH SOL UD 3ML (DUONEB)(J7620) NEB (03:45)
[2018-05-27 04:00] LABS: FERRITIN 3 NG/ML (8-252); IRON (FE) 19 UG/DL (50-170); PERCENT SATURATION 4.3 % (13.2-45.0); TOTAL IRON BINDING CAPACITY 437 UG/DL (250-450)
[2018-05-27] MEDS: PANTOPRAZOLE 40MG INJ (PROTONIX) (C9113) IV ×2 (05:24→17:46)
[2018-05-27] MEDS: SUMAtriptan SUCCINATE 25 MG TAB PO (05:24)
[2018-05-27 07:51] LABS: ANION GAP 7 MEQ/L (8-16); BLOOD UREA NITROGEN 20 MG/DL (7-18); CALCIUM LEVEL 7.7 MG/DL (8.5-10.1); CARBON DIOXIDE LEVEL 24 MEQ/L (21-32); CHLORIDE LEVEL 111 MEQ/L (98-107); CREATININE FOR GFR 0.46 MG/DL (0.55-1.30); GLOMERULAR FILTRATION RATE > 60.0 (>60); GLUCOSE, FASTING 75 MG/DL (70-100); MAGNESIUM LEVEL 1.8 MG/DL (1.8-2.4); POTASSIUM SERUM 4.1 MEQ/L (3.5-5.1); SODIUM LEVEL 142 MEQ/L (136-145)
[2018-05-27 13:12] LABS: HEMATOCRIT 26.8 % (36.0-47.0); HEMOGLOBIN 7.3 g/dl (12.0-15.5)
[2018-05-27 13:19] LABS: POSITIVE MORPH POS FLAG
[2018-05-27 15:40] LABS: IMMEDIATE SPIN CROSSMATCH 1 3
[2018-05-27] MEDS: ACETAMINOPHEN 325 MG TAB PO (16:09)
[2018-05-27] MEDS: ONDANSETRON 4MG/2ML VIAL (J2405) IV (17:46)
[2018-05-27] MEDS: MORPHINE 4 MG/ML 1ML VIAL/SYRINGE (J2270) IV (17:46)
[2018-05-27] MEDS: GASTROGRAFIN SOLUTION 30ML PO ×2 (17:56)
[2018-05-27 18:03] LABS: HEMATOCRIT 29.6 % (36.0-47.0)
[2018-05-27 18:08] LABS: HEMOGLOBIN 8.3 g/dl (12.0-15.5); POSITIVE MORPH POS FLAG
[2018-05-27] MEDS ORDERED: NS 500 ML IV (20:45)
[2018-05-27] MEDS: SENOKOT S TAB PO (22:59)
[2018-05-28] MEDS: PANTOPRAZOLE 40MG INJ (PROTONIX) (C9113) IV (06:02)
[2018-05-28 06:03] LABS: HEMATOCRIT 29.3 % (36.0-47.0); HEMOGLOBIN 8.2 g/dl (12.0-15.5); MEAN CORPUSCULAR HEMOGLOBIN 19.1 pg (27.0-33.0); MEAN CORPUSCULAR VOLUME 68.1 fl (80.0-96.0); PLATELET COUNT, AUTOMATED 119 10^3/uL (150-450); RED CELL DISTRIBUTION WIDTH 22.8 % (11.5-14.5); WHITE BLOOD COUNT 4.5 10^3/uL (4.0-10.0)
[2018-05-28] MEDS: SENOKOT S TAB PO (08:59)
[2018-05-28] MEDS: ACETAMINOPHEN TAB 650MG DOSE (2X325MG) PO (13:15)
== END 2018-05-28 17:27 | disposition left against medical advice (07) ==
LOC: M ED 00:02 → M ED INP 03:15 → M MSPAV 13:10
DX: Z53.21 Procedure and treatment not carried out due to patient leaving prior to being seen by health care provider (principal); D50.9 Iron deficiency anemia, unspecified; D52.9 Folate deficiency anemia, unspecified; E44.1 Mild protein-calorie malnutrition; G43.909 Migraine, unspecified, not intractable, without status migrainosus; R10.9 Unspecified abdominal pain; F17.210 Nicotine dependence, cigarettes, uncomplicated; Z98.84 Bariatric surgery status; Z88.1 Allergy status to other antibiotic agents; J45.909 Unspecified asthma, uncomplicated; Z79.899 Other long term (current) drug therapy
CPT/HCPCS: C9113

== ENCOUNTER 2018-08-11 17:39 | Emergency (ER) | payer OTHER ==
[2018-08-11] MEDS ORDERED: MORPHINE 2 MG/ML 1ML SYRINGE (J2270) As Ordered (17:59)
[2018-08-11] MEDS: ONDANSETRON 4MG/2ML VIAL (J2405) IV ×2 (18:04→19:52)
[2018-08-11] MEDS: MORPHINE 2 MG/ML 1ML SYRINGE (J2270) IV ×3 (18:04→22:29)
[2018-08-11] MEDS: NS 1,000 ML IV (18:05)
[2018-08-11] MEDS: GASTROGRAFIN SOLUTION 30ML PO ×2 (18:17→18:51)
[2018-08-11 18:36] LABS: BASO # 0.1 10^3/uL (0.0-0.2); BASO % 0.7 % (0.0-1.0); EOS # 0.1 10^3/uL (0.0-0.50); EOS % 0.7 % (0.0-3.0); HEMATOCRIT 28.4 % (36.0-47.0); HEMOGLOBIN 8.4 g/dl (12.0-15.5); IMMATURE GRANULOCYTE % 0.4 % (0-3.0); LYMPH # 1.6 10^3/uL (1.5-6.5); LYMPH % 22.1 % (24.0-44.0); MEAN CORPUSCULAR HEMOGLOBIN 21.6 pg (27.0-33.0); MEAN CORPUSCULAR HGB CONC 29.6 g/dl (32.0-36.5); MEAN CORPUSCULAR VOLUME 73.2 fl (80.0-96.0); MONO # 0.7 10^3/uL (0.0-0.8); MONO % 9.9 % (0.0-5.0); NEUTROPHILS # 4.9 10^3/uL (1.8-7.7); NEUTROPHILS % 66.2 % (36.0-66.0); PLATELET COUNT, AUTOMATED 194 10^3/uL (150-450); RED BLOOD COUNT 3.88 10^6/uL (4.00-5.40); RED CELL DISTRIBUTION WIDTH 20.4 % (11.5-14.5); WHITE BLOOD COUNT 7.4 10^3/uL (4.0-10.0)
[2018-08-11 18:43] LABS: ALBUMIN 2.7 GM/DL (3.2-5.2); ALKALINE PHOSPHATASE 120 U/L (45-117); ALT/SGPT 13 U/L (12-78); AMYLASE 102 U/L (25-115); ANION GAP 8 MEQ/L (8-16); AST/SGOT 14 U/L (7-37); BILIRUBIN,DIRECT < 0.1 MG/DL (0.0-0.2); BILIRUBIN,TOTAL 0.1 MG/DL (0.2-1.0); BLOOD UREA NITROGEN 12 MG/DL (7-18); CALCIUM LEVEL 8.2 MG/DL (8.5-10.1); CARBON DIOXIDE LEVEL 27 MEQ/L (21-32); CHLORIDE LEVEL 100 MEQ/L (98-107); CK-MB VALUE MASS < 1.0 NG/ML (<3.6); CPK CREATINE PHOSPHOKINASE 52 U/L (26-192); CREATININE FOR GFR 0.56 MG/DL (0.55-1.30); GLOMERULAR FILTRATION RATE > 60.0 (>60); GLUCOSE, FASTING 98 MG/DL (70-100); LIPASE 266 U/L (73-393); MB/CK RELATIVE INDEX 1.92 (< OR =4); POTASSIUM SERUM 4.3 MEQ/L (3.5-5.1); SODIUM LEVEL 135 MEQ/L (136-145); TOTAL PROTEIN 7.2 GM/DL (6.4-8.2); TROPONIN I < 0.02 NG/ML (< 0.10)
[2018-08-11 18:44] LABS: INR 1.09; PROTHROMBIN TIME 14.3 SECONDS (12.1-14.4)
[2018-08-11 18:45] LABS: PARTIAL THROMBOPLASTIN TIME 29.3 SECONDS (25.4-37.6)
[2018-08-11 18:53] LABS: LACTIC ACID SEPSIS PROTOCOL 1.5 MMOL/L (0.4-2.0)
[2018-08-11 19:04] LABS: CONTROL LINE HCG INT CTR LINE PRESENT; HCG, SERUM QUALITATIVE NEGATIVE (NEGATIVE)
[2018-08-11 19:48] LABS: KETONE, URINE AUTO RFX NEGATIVE (NEGATIVE); NITRITE, URINE AUTO RFX NEGATIVE (NEGATIVE); RBC, URINE AUTO RFX 3 /HPF (0-3); SPECIFIC GRAVITY UR AUTO RFX 1.004 (1.002-1.035); SQUAM EPITHELIAL CELL UR AURFX 1 /HPF (0-6); WBC, URINE AUTO RFX 4 /HPF (0-3)
[2018-08-11 19:49] LABS: LEUKOCYTE ESTERASE UR AUTO RFX 2+ (NEGATIVE)
[2018-08-11] MEDS ORDERED: ISOVUE-370 76% 100ML VIAL (Q9967) As Ordered (20:11)
[2018-08-11 20:17] LABS: AMPHETAMINES LEVEL URINE NEGATIVE (NEGATIVE); BARBITURATES URINE NEGATIVE (NEGATIVE); BENZODIAZEPINES URINE NEGATIVE (NEGATIVE); CANNABINOIDS URINE NEGATIVE (NEGATIVE); COCAINE METABOLITE URINE NEGATIVE (NEGATIVE); METHADONE URINE NEGATIVE (NEGATIVE); OPIATES URINE POSITIVE (NEGATIVE); PHENCYCLIDINE URINE NEGATIVE (NEGATIVE)
[2018-08-11] MEDS: PROMETHAZINE INJ 25 MG/ML VIAL (J2550) IV (20:47)
[2018-08-11] MEDS: KETOROLAC 30 MG/ML VIAL (J1885) IV (20:47)
[2018-08-11] MEDS: PANTOPRAZOLE SODIUM 40 MG in D5W 50 ML IV (22:28)
== END 2018-08-12 00:16 | disposition short-term general hospital (02) ==
LOC: M ED 08-12 00:16
DX: K63.1 Perforation of intestine (nontraumatic) (principal)
CPT/HCPCS: C9113

== ENCOUNTER 2018-11-19 20:08 | Emergency (ER) | payer OTHER ==
[~2018-11-19] VITALS: Ht 157.5 cm; Wt 52.3 kg
[~2018-11-19 20:08] MED LIST changes: +OMEP40CA2 PO; +TRAM50TA2 PO; +ZOFR4TAB14 PO
[2018-11-19] MEDS ORDERED: SUCR1TAB56 (20:13)
[2018-11-19 20:46] LABS: BASO # 0.1 10^3/uL (0.0-0.2); BASO % 0.7 % (0.0-1.0); EOS # 0.2 10^3/uL (0.0-0.50); HEMATOCRIT 38.8 % (36.0-47.0); HEMOGLOBIN 12.3 g/dl (12.0-15.5); LYMPH # 2.8 10^3/uL (1.5-6.5); LYMPH % 23.9 % (24.0-44.0); MEAN CORPUSCULAR HGB CONC 31.7 g/dl (32.0-36.5); MEAN CORPUSCULAR VOLUME 88.4 fl (80.0-96.0); MONO # 0.7 10^3/uL (0.0-0.8); MONO % 6.2 % (0.0-5.0); NEUTROPHILS # 7.9 10^3/uL (1.8-7.7); NEUTROPHILS % 66.8 % (36.0-66.0); PLATELET COUNT, AUTOMATED 235 10^3/uL (150-450); RED BLOOD COUNT 4.39 10^6/uL (4.00-5.40); WHITE BLOOD COUNT 11.9 10^3/uL (4.0-10.0)
--- NOTE | 2018-11-19 21:48 | REPVR ---
EXAM: US First Trimester, Transabdominal EXAM DATE/TIME: 11/19/2018 9:09 PM CLINICAL HISTORY: 28 years old, female; Pain; complicated by abdominal or pelvic pain; Lower; First trimester; Gestational age or lmp: 5; ; Prior surgery; Surgery date: 6+ months; Additional info: Rlq pain, pos preg TECHNIQUE: Imaging protocol: Real-time transabdominal obstetrical ultrasound of the maternal pelvis and a first trimester , less than 14 weeks 0 days, with image documentation. COMPARISON: CT ABD PELVIS W/O CONTRAST 05/27/2018 8:04 PM FINDINGS: GESTATION: Gestation: No intrauterine gestation is identified. MATERNAL: Uterus: The uterus is anteverted. The uterus measures 10.2 cm x 4.9 cm x 5.7 cm. The endometrial stripe measures 20 mm in thickness. There is a focal area of mild increased echogenicity within the posterior myometrium measuring 2.6 cm x 2.3 cm x 2.4 cm. scars are noted within the anterior aspect of the lower uterine segment. Cervix: Unremarkable. Right adnexa: The right ovary measures 3.4 cm x 3.1 cm x 2.5 cm. There is a complex cyst measuring 2.5 cm, which is surrounded by increased color Doppler blood flow, likely corpus luteum. Left adnexa: The left ovary has a normal appearance and measures 2.4 cm x 1.2 cm x 2.2 cm. Intraperitoneal: No free intraperitoneal fluid or adnexal mass is identified. IMPRESSION: No intrauterine gestation identified. No adnexal mass or free intraperitoneal fluid is seen. Cannot rule out an ectopic versus very early . Further clinical assessment and followup ultrasound is recommended. Electronically signed by: Kwame Sosa On 11/19/2018 21:47:46 PM
[2018-11-19 21:55] VITALS: BP 134/83
[2018-11-19] MEDS ORDERED: MACR100C43 PO (22:21)
[2018-11-19] MEDS ORDERED: DIFL150T PO (22:28)
[2018-11-19] MEDS ORDERED: NITROFURANTOIN (MACROBID) 100 MG CAP PO ONE (22:30)
== END 2018-11-19 22:35 | disposition home or self-care (01) ==
LOC: M ED 20:08
DX: N39.0 Urinary tract infection, site not specified (principal); N83.201 Unspecified ovarian cyst, right side; Z32.01 Encounter for pregnancy test, result positive; Z88.8 Allergy status to other drugs, medicaments and biological substances; Z3A.00 Weeks of gestation of pregnancy not specified

== ENCOUNTER → 2019-01-20 | Outpatient (CLI) | payer OTHER ==
[~2019-01-20] MED LIST changes: +ACET-716 PO; -ACET30TAB PO; +DIFL150T PO; +MACR100C43 PO; +SUCR1TAB56
[2019-01-20 11:28] LABS: BASO % 0.5 % (0.0-1.0); EOS # 0.2 10^3/uL (0.0-0.50); HEMATOCRIT 33.3 % (36.0-47.0); HEMOGLOBIN 10.6 g/dl (12.0-15.5); LYMPH # 1.7 10^3/uL (1.5-6.5); LYMPH % 30.1 % (24.0-44.0); MEAN CORPUSCULAR HEMOGLOBIN 28.5 pg (27.0-33.0); MEAN CORPUSCULAR HGB CONC 31.8 g/dl (32.0-36.5); MEAN CORPUSCULAR VOLUME 89.5 fl (80.0-96.0); MONO # 0.4 10^3/uL (0.0-0.8); MONO % 7.4 % (0.0-5.0); NEUTROPHILS # 3.3 10^3/uL (1.8-7.7); NEUTROPHILS % 58.8 % (36.0-66.0); PLATELET COUNT, AUTOMATED 116 10^3/uL (150-450); RED BLOOD COUNT 3.72 10^6/uL (4.00-5.40); WHITE BLOOD COUNT 5.6 10^3/uL (4.0-10.0)
[2019-01-20 15:21] LABS: CHLAMYDIA DNA AMPLIFICATION NEGATIVE (NEGATIVE); GC DNA AMPLIFICATION NEGATIVE (NEGATIVE)
[2019-01-21 10:52] LABS: HEPATITIS C VIRUS ABY INDEX 0.1 INDEX (<0.8); HIV 1&2 SCREEN CENTAUR NEGATIVE (NEGATIVE); RUBELLA IgG QUALITATIVE IMMUNE (IMMUNE)
--- NOTE | 2019-01-21 12:29 | REP ---
Clinical: Dating and viability. Technique: Transabdominal first trimester obstetrical ultrasound with color Doppler evaluation Findings: Single live early intrauterine is appreciated. Anterior grade zero placenta. Lumpkin-rump length of 7.6 cm corresponds to 13 weeks 3 days gestational age with estimated date of delivery 07/25/2019 . heart rate equals 149 beats per minute. No gross abnormalities are identified. Impression: Single live early intrauterine at 13 weeks 3 days gestational age. Complete anatomical assessment should be performed and 19-20 weeks. Electronically Signed by Butch Stewart MD 01/21/2019 12:22 P
== END ==
LOC: M LAB 10:43
PROVIDERS: ATTEND Advanced Practice Midwife
DX: Z34.81 Encounter for supervision of other normal pregnancy, first trimester (principal); Z3A.13 13 weeks gestation of pregnancy

== ENCOUNTER → 2019-02-19 | Outpatient (CLI) | payer OTHER ==
--- NOTE | 2019-02-19 11:53 | REP ---
Obstetric ultrasound for anatomy: There is a single intrauterine gestation in a vertex presentation. There is movement and cardiac activity. The heart rate is 141 beats per minute. The placenta is anterior and right lateral with a posterior succenturiate lobe. A large venous snider is suspected in the fundal portion of the placenta. The placenta is grade zero maturity. The amniotic fluid volume subjectively is normal. The cervix measures 3.0 cm length. Gestational age by today's ultrasound is 17 weeks 5 days/RANULFO 07/25/2019. Gestational age by the first ultrasound is 17 weeks 5 days/RANULFO 07/25/2019. Gestational age by LMP is 18 weeks 8 days/RANULFO 07/19/2019. weight is 202 grams/0 pounds, 7 ounces. This is the 12th percentile for 18 weeks 4 days. The following anatomic structures are identified and are unremarkable: Cranium, cavum septum pellucidum, cerebellum, upper lip, face, lungs, four-chamber heart, cardiac right and left ventricular outflow tracts, diaphragm, cord insertion, three-vessel cord, kidneys, bladder, spine and upper lower extremities. There is a left choroid plexus cyst. Echogenic debris is identified in the stomach. The following structures are suboptimally demonstrated because of position: Facial profile. Electronically Signed by Dejan Rodarte MD 02/19/2019 11:44 A
== END ==
LOC: M RAD 10:18
PROVIDERS: ATTEND Advanced Practice Midwife
DX: O99.842 Bariatric surgery status complicating pregnancy, second trimester (principal); Z3A.18 18 weeks gestation of pregnancy

== ENCOUNTER → 2019-03-17 | Outpatient (CLI) | payer OTHER ==
[~2019-03-17] MED LIST changes: -OMEP20CA3 PO; +OMEP20CA4 PO
[2019-03-17 17:51] LABS: CALCIUM LEVEL 8.2 MG/DL (8.5-10.1)
[2019-03-17 18:07] LABS: FOLATE 17.9 NG/ML (>5.4)
== END ==
LOC: M LAB 16:10
PROVIDERS: ATTEND Advanced Practice Midwife
DX: O99.842 Bariatric surgery status complicating pregnancy, second trimester (principal)

== ENCOUNTER → 2019-04-03 | Outpatient (CLI) | payer OTHER ==
[2019-04-03 13:24] LABS: HEMATOCRIT 30.1 % (36.0-47.0); HEMOGLOBIN 9.7 g/dl (12.0-15.5); MEAN CORPUSCULAR HEMOGLOBIN 28.4 pg (27.0-33.0); MEAN CORPUSCULAR HGB CONC 32.2 g/dl (32.0-36.5); PLATELET COUNT, AUTOMATED 123 10^3/uL (150-450); RED BLOOD COUNT 3.42 10^6/uL (4.00-5.40); WHITE BLOOD COUNT 8.5 10^3/uL (4.0-10.0)
== END ==
LOC: M LAB 13:03
PROVIDERS: ATTEND Advanced Practice Midwife
DX: O99.842 Bariatric surgery status complicating pregnancy, second trimester (principal); Z3A.00 Weeks of gestation of pregnancy not specified

== ENCOUNTER 2019-04-10 07:45 | Outpatient (CLI) | payer OTHER ==
[~2019-04-10] VITALS: Ht 157.5 cm; Wt 60.9 kg
[2019-04-10] VITALS (8 sets, daily range): BP systolic 96–110; BP diastolic 50–68
[2019-04-10] MEDS ORDERED: IRON SUCROSE 500 MG in NS 250 ML OVER 4 HRS IV ONE (09:00)
== END 2019-04-10 13:30 | disposition home or self-care (01) ==
LOC: M INFU 07:45
PROVIDERS: ATTEND Advanced Practice Midwife
DX: D64.9 Anemia, unspecified (principal)
CPT/HCPCS: 96365; 96366; J1756

== ENCOUNTER 2019-05-01 20:55 | Emergency (ER) | payer OTHER ==
[~2019-05-01] VITALS: Ht 154.9 cm; Wt 59.1 kg
[2019-05-01] MEDS ORDERED: ACET-841 PO (21:10)
[2019-05-01] MEDS ORDERED: AMOX875T PO (21:57)
[2019-05-01] MEDS ORDERED: AMOXICILLIN 500 MG CAP PO ONE (22:00)
[2019-05-01 22:02] VITALS: BP 110/61
== END 2019-05-01 22:11 | disposition home or self-care (01) ==
LOC: M ED 20:55
DX: K04.7 Periapical abscess without sinus (principal); D64.9 Anemia, unspecified; Z98.84 Bariatric surgery status; Z79.899 Other long term (current) drug therapy; Z88.8 Allergy status to other drugs, medicaments and biological substances; F17.210 Nicotine dependence, cigarettes, uncomplicated

== ENCOUNTER → 2019-05-25 | Outpatient (CLI) | payer OTHER ==
[~2019-05-25] MED LIST changes: +ACET-841 PO; +AMOX875T PO
[2019-05-25 16:54] LABS: HEMATOCRIT 30.6 % (36.0-47.0); HEMOGLOBIN 9.8 g/dl (12.0-15.5); MEAN CORPUSCULAR HEMOGLOBIN 29.9 pg (27.0-33.0); MEAN CORPUSCULAR VOLUME 93.3 fl (80.0-96.0); PLATELET COUNT, AUTOMATED 151 10^3/uL (150-450); RED BLOOD COUNT 3.28 10^6/uL (4.00-5.40); WHITE BLOOD COUNT 9.8 10^3/uL (4.0-10.0)
[2019-05-25 17:13] LABS: CALCIUM LEVEL 8.7 MG/DL (8.5-10.1)
[2019-05-25 17:28] LABS: TOTAL 25(OH) VITAMIN D 16.8 NG/ML (30.0-100.0)
[2019-05-25 17:30] LABS: FOLATE 3.9 NG/ML (>5.4)
--- NOTE | 2019-05-26 04:07 | REP ---
Clinical: Growth evaluation. Comparison: 03/23/2019 . Findings: Examination demonstrates a single live intrauterine in cephalic presentation. motion is identified by technologist. Placenta is noted fundal and grade I I without evidence for placenta previa or abruption. Amniotic fluid volume is normal. Cervix measures 3.5 cm in length and appears closed. No evidence for nuchal cord. Gestational age by first US 31 weeks 2 days with RANULFO 07/25/2019 . Gestational age by current measurements 30 weeks 5 days with RANULFO 07/29/2019 . FHR equals 130 beats per minute. BPD 8.0 cm 32 weeks 1 day HC 29.2 cm i32 weeks 1 day AC 26.1 cm 30 weeks 2 days FL 5.9 cm 30 weeks 5 days HL 4.8 cm 28 weeks 2 days HC/AC ratio 1.12 Estimated weight 1621 grams ( 30th percentile). Amniotic fluid index: 12.4 cm Umbilical cord SD ratio: 2.04 (2.50 - 3.50) . Impression: Single live advanced gestation in cephalic presentation demonstrating appropriate interval growth. Umbilical SD ratio minimally decreased. Electronically Signed by Butch Stewart MD 05/26/2019 03:58 A
== END ==
LOC: M RAD 15:35
PROVIDERS: ATTEND Advanced Practice Midwife
DX: O99.843 Bariatric surgery status complicating pregnancy, third trimester (principal); Z3A.30 30 weeks gestation of pregnancy

== ENCOUNTER → 2019-06-17 | Outpatient (REF) | payer OTHER ==
[~2019-06-17] MED LIST changes: -OMEP40CA2 PO; +OMEP40CA97 PO
== END ==
LOC: M LAB REF 16:52
PROVIDERS: ATTEND Advanced Practice Midwife
DX: Z36.85 Encounter for antenatal screening for Streptococcus B (principal); O99.843 Bariatric surgery status complicating pregnancy, third trimester; Z3A.36 36 weeks gestation of pregnancy

== ENCOUNTER → 2019-06-24 | Outpatient (CLI) | payer OTHER ==
[~2019-06-24] MED LIST changes: +AMOX500T PO; +CHOL100029 PO
[2019-06-24 13:05] LABS: HEMATOCRIT 31.9 % (36.0-47.0); HEMOGLOBIN 10.1 g/dl (12.0-15.5); MEAN CORPUSCULAR HEMOGLOBIN 29.2 pg (27.0-33.0); MEAN CORPUSCULAR HGB CONC 31.7 g/dl (32.0-36.5); MEAN CORPUSCULAR VOLUME 92.2 fl (80.0-96.0); PLATELET COUNT, AUTOMATED 152 10^3/uL (150-450); RED BLOOD COUNT 3.46 10^6/uL (4.00-5.40); WHITE BLOOD COUNT 11.1 10^3/uL (4.0-10.0)
--- NOTE | 2019-06-24 19:16 | REP ---
Clinical: Anatomical evaluation. Comparison: Growth 05/25/2019 . Findings: Examination demonstrates a single live intrauterine in cephalic presentation. motion is identified by technologist. Placenta is noted right lateral and grade I I without evidence for placenta previa or abruption. Amniotic fluid volume is normal. Cervix appears closed. No evidence for nuchal cord. Gestational age by LMP 36 weeks 3 days with RANULFO 07/19/2019 . Gestational age by current measurements 34 weeks 1 day with RANULFO 08/04/2019. FHR equals 150 beats per minute. BPD 8.9 cm 35 weeks 6 days HC 32.6 cm 36 week 6 days AC 29.8 cm 33 weeks 6 days FL 6.4 cm 33 weeks 1 day (less than 5th percentile) HL 5.4 cm 31 weeks 2 days (less than 5th percentile) HC/AC ratio 1.09 Estimated weight 2357 grams ( 15th percentile). Amniotic fluid index: 15.0 cm Umbilical cord SD ratio: 2.21 Impression: Single live intrauterine in cephalic presentation. While estimated weight remains in normal range for age by LMP, there appears to be somewhat less than expected growth including significantly decreased size of the extremities. Correlation and follow up may be warranted. Electronically Signed by Butch Stewart MD 06/24/2019 07:07 P
== END ==
LOC: M RAD 11:35
PROVIDERS: ATTEND Advanced Practice Midwife
DX: O99.843 Bariatric surgery status complicating pregnancy, third trimester (principal); Z3A.34 34 weeks gestation of pregnancy; D69.6 Thrombocytopenia, unspecified

== ENCOUNTER → 2019-07-08 | Outpatient (CLI) | payer OTHER ==
[~2019-07-08] MED LIST changes: +OXYC1TAB23 PO
--- NOTE | 2019-07-09 10:43 | REP ---
Clinical: well-being Comparison: 06/24/2019 . Findings: Examination demonstrates a single live intrauterine in cephalic presentation. motion is identified by technologist. Placenta is noted right lateral and grade zero without evidence for placenta previa or abruption. Amniotic fluid volume is normal. Cervix appears closed. No evidence for nuchal cord. Gestational age by LMP 38 weeks 3 days with RANULFO 07/19/2019 . Gestational age by current measurements 34 weeks 5 days with RANULFO 08/14/2019 . FHR equals 131 beats per minute. BPD 9.2 cm 37 weeks 2 days HC 32.0 cm 36 weeks 0 days AC 31.0 cm 35 weeks 0 days (less than 5th percentile) FL 6.5 cm 33 weeks 2 days (less than 5th percentile) HL 5.5 cm 32 weeks 0 days (less than 5th percentile) HC/AC ratio 1.03 Estimated weight 2530 grams ( 5th percentile based on age by LMP ). Amniotic fluid index: 14.8 cm Umbilical cord SD ratio: 2.69 Impression: Single live advanced gestation in cephalic presentation. Less than expected interval growth is suggested although estimated weight remains at the 5th percentile based on age by LMP and 38 weeks 3 days. No gross abnormality identified. Electronically Signed by Butch Stewart MD 07/09/2019 10:34 A
== END ==
LOC: M RAD 13:11
PROVIDERS: ATTEND Advanced Practice Midwife
DX: O99.843 Bariatric surgery status complicating pregnancy, third trimester (principal); O34.211 Maternal care for low transverse scar from previous cesarean delivery; Z3A.34 34 weeks gestation of pregnancy

== ENCOUNTER 2019-07-09 15:36 | Inpatient (IN) | payer OTHER ==
[~2019-07-09] VITALS: Ht 154.9 cm; Wt 59.9 kg
[~2019-07-09 15:36] MED LIST changes: -OXYC1TAB23 PO
[2019-07-09 16:04] VITALS: BP 125/70
[2019-07-09] MEDS ORDERED: LR 1,000 ML IV SCH ×3 (16:30→19:41)
[2019-07-09] MEDS ORDERED: BICITRA 30ML SOLN UDC PO ONE (16:30)
[2019-07-09 16:48] VITALS: BP 100/64
[2019-07-09 16:59] LABS: HEMATOCRIT 34.2 % (36.0-47.0); HEMOGLOBIN 10.8 g/dl (12.0-15.5); MEAN CORPUSCULAR HEMOGLOBIN 29.1 pg (27.0-33.0); MEAN CORPUSCULAR HGB CONC 31.6 g/dl (32.0-36.5); MEAN CORPUSCULAR VOLUME 92.2 fl (80.0-96.0); PLATELET COUNT, AUTOMATED 173 10^3/uL (150-450); RED BLOOD COUNT 3.71 10^6/uL (4.00-5.40); WHITE BLOOD COUNT 9.9 10^3/uL (4.0-10.0)
[2019-07-09] MEDS ORDERED: GENTAMICIN 80 MG in IV 1 EA IV ONE (17:15)
[2019-07-09] MEDS ORDERED: CLINDAMYCIN 300 MG in IV 1 EA IV ONE (17:15)
[2019-07-09 17:25] LABS: AMPHETAMINES URINE REFLEX NEGATIVE (NEGATIVE); BARBITURATES URINE REFLEX NEGATIVE (NEGATIVE); BENZODIAZEPINES URINE REFLEX NEGATIVE (NEGATIVE); COCAINE METABOLITE URINE REFLE NEGATIVE (NEGATIVE); METHADONE URINE REFLEX NEGATIVE (NEGATIVE); OPIATES URINE REFLEX NEGATIVE (NEGATIVE); PHENCYCLIDINE URINE REFLEX NEGATIVE (NEGATIVE)
--- NOTE | 2019-07-09 18:05 | HPE ---
DATE OF ADMISSION: 07/09/2019 A 28-year-old 4, para 2-0-1-2 female at 38-5/7 weeks gestation by last menstrual period (LMP), consistent with a 13-week ultrasound, estimated date of confinement (EDC) of 07/19/2019, presents for repeat section and tubal ligation. The indication for delivery less than 39 weeks is intrauterine growth restriction (IUGR) with growth at 5th percentile. Patient has had two prior sections. She denies contractions or vaginal bleeding. COURSE: The patient initiated care at 13 weeks gestation on 01/13/2019. Her first trimester blood pressure was 124/76, weight 133 pounds. Patient is a heavy smoker, including marijuana use during . She required iron infusion for symptomatic anemia during . She had progressively diminishing growth on ultrasounds, culminating in growth of the 5th percentile on her most recent ultrasound. testing has been reassuring thus far for IUGR. OBSTETRICAL HISTORY: 2005: 40 weeks, section, 5 pound 8 ounce male infant. 2006: 40 weeks, section, 6 pound 13 ounce male . MEDICAL HISTORY: History of drug use. SURGICAL HISTORY: 1. Gastric bypass. 2. Small bowel obstruction times two, one was treated laparoscopically, one was treated by laparotomy. 3. Knee surgery. 4. Tonsillectomy. ALLERGIES: 1. NONSTEROIDALS. 2. ANCEF. SOCIAL HISTORY: The patient does not have custody of other children, she is a heavy smoker. She denies current drug use. Remote history of drug use. FAMILY HISTORY: Hepatitis C in family members. PHYSICAL EXAMINATION: Blood pressure 104/84, pulse 84, afebrile. No apparent distress. Head and neck exam: Normal. Lungs: Clear. Heart: Regular rate and rhythm. Abdomen: Nontender, gravid. heart tones: Category 1. Contractions: Irregular. Extremities: Nontender. LABS: Blood type O positive, Rubella immune, RPR nonreactive. ASSESSMENT: A 29-year-old 4, para 2 female at 38-5/7 weeks gestation with IUGR, growth at the 5th percentile, presents for repeat section and tubal ligation. Consents were signed. Surgery planned on 07/09/2019.
[2019-07-09 18:12] LABS: CANNABINOIDS URINE REFLEX PENDING CONFIRMATION (NEGATIVE)
--- NOTE | 2019-07-09 18:13 | HPE ---
DATE OF ADMISSION: 07/09/2019 A 29-year-old G4, P2-0-1-2 female at 38-5/7 weeks gestation by last menstrual period (LMP) consistent with 13 week ultrasound, estimated date of confinement (EDC) 07/09/2019, presents for a repeat section. INDICATION FOR DELIVERY: Less than 39 weeks is intrauterine growth restriction with growth estimated at the fifth percentile. She has had two prior sections. Denies vaginal bleeding. Has good movement. There are no contractions. COURSE: Patient's initial care was at 13 weeks in 01/13/2019. Her first trimester blood pressure was 124/36, weight 133 pounds. OBSTETRICAL HISTORY: 1. 2005: (C) section. 2. 2006: (C) section. 3. 2002: . MEDICAL HISTORY: Obesity. SURGICAL HISTORY: 1. Gastric bypass. 2. Bowel resection for small bowel obstruction. 3. Laparoscopic relief of bowel obstruction. ALLERGIES: NONSTEROIDAL ANTI-INFLAMMATORY DRUGS (NSAIDS) and ANCEF. SOCIAL HISTORY: Patient has a history of drug use. Father of the baby is involved. She smokes cigarettes. PHYSICAL EXAMINATION: 124/74, pulse 84. In no apparent distress. HEAD EXAM: Normal. LUNGS: Clear. HEART: Regular rate and rhythm. ABDOMEN: Nontender. Gravid. <<1:30>> throughout. VAGINAL EXAM: Deferred. CONTRACTIONS: None. LABORATORIES: Blood type O positive, rubella immune, rapid plasma reagin (RPR) nonreactive. ASSESSMENT: A 29-year-old G4, P2 female at 30-5/7 weeks gestation with intrauterine growth restriction and two prior sections. PLAN: Repeat section as well as tubal ligation. Consents were signed.
[2019-07-09] MEDS ORDERED: dexameTHASONE 4 MG/ML 1ML VIAL (J1100) As Ordered ONE (18:30)
[2019-07-09] MEDS ORDERED: OXYTOCIN INJ 10 UNITS/ML VIAL (J2590) As Ordered ONE (18:30)
[2019-07-09] MEDS ORDERED: MORPHINE PRES-FREE INJ 10 MG/10 ML VIAL (J2274) As Ordered ONE (18:31)
[2019-07-09] MEDS ORDERED: fentaNYL 100 MCG/2 ML INJECTION (J3010) As Ordered ONE (18:31)
[2019-07-09] MEDS ORDERED: METOCLOPRAMIDE INJ 10MG/2ML VIAL (J2765) IV PRN (18:47)
[2019-07-09] MEDS ORDERED: NALOXONE INJ 0.4 MG/1 ML VIAL (J2310) IV PRN ×2 (18:47)
[2019-07-09] MEDS ORDERED: ONDANSETRON 4MG/2ML VIAL (J2405) IV PRN ×3 (18:47→20:15)
[2019-07-09] MEDS ORDERED: diphenhydrAMINE INJ 50MG/ML VIAL (J1200) IV PRN (18:47)
[2019-07-09] MEDS ORDERED: NALBUPHINE HCL 10 MG/ML AMP (J2300) IV PRN ×2 (18:47→20:15)
[2019-07-09] MEDS ORDERED: ePHEDrine SULFATE 25 MG/5 ML(5MG/ML) SYRINGE As Ordered ONE (19:04)
[2019-07-09] MEDS ORDERED: OXYTOCIN DRIP 30 UNITS in IV 1 EA IV SCH (19:41)
[2019-07-09] MEDS ORDERED: MEASLES,MUMPS,RUBELLA VACCINE INJ (MMR-II) (90707) SC SCH (19:45)
[2019-07-09] MEDS ORDERED: DOCUSATE SODIUM 100 MG CAP PO PRN (19:45)
[2019-07-09] MEDS ORDERED: RHOGAM 300 MCG (1500 IU) INJ (J2790) IM SCH (19:45)
[2019-07-09] MEDS ORDERED: PERCOCET 5MG/325MG TAB PO PRN (20:15)
[2019-07-09] MEDS ORDERED: HYDROMORPHONE HCL 0.5 MG/ 0.5 ML SYRINGE (J1170 PER 1) IV PRN (20:15)
[2019-07-09] MEDS ORDERED: fentaNYL 100 MCG/2 ML INJECTION (J3010) IV PRN (20:15)
[2019-07-09] MEDS ORDERED: MEPERIDINE INJ 25 MG/ML VIAL (J2175) IV PRN (20:15)
[2019-07-09] MEDS ORDERED: OXYTOCIN 30 UNITS IN 0.9% NaCl 500ML IV BAG (J2590) As Ordered ONE (20:27)
[2019-07-09] MEDS: OMEPRAZOLE 20 MG CAP PO SCH (21:03)
[2019-07-09] MEDS: NICOTINE 14 MG/24 HR TRANSDERMAL TD SCH (21:06)
[2019-07-09] MEDS ORDERED: PERCOCET 5MG/325MG TAB As Ordered ONE (21:17)
[2019-07-09] MEDS: PERCOCET 5MG/325MG TAB PO PRN (21:21)
[2019-07-09 21:40] VITALS: BP 136/69
[2019-07-09 22:10] VITALS: BP 146/67
--- NOTE | 2019-07-09 22:28 | RO ---
DATE OF PROCEDURE: 07/09/2019 PREPROCEDURE DIAGNOSIS: 38-5/7 weeks gestation, intrauterine growth restriction, prior section times two, undesired fertility. POSTPROCEDURE DIAGNOSIS: 38-5/7 weeks gestation, intrauterine growth restriction, prior section times two, undesired fertility. PROCEDURE: Repeat low transverse section and bilateral tubal ligation. SURGEON: Max Salazar MD AUTO TOP MECHANIC: Elfego Stephens MD ANESTHESIA: Spinal. ESTIMATED BLOOD LOSS: 500 mL. URINE OUTPUT: 100 mL. FINDINGS: 5 pound 0 ounce female infant, 2280 grams, scores 9 and 9. Normal uterus, fallopian tubes and ovaries. No evidence of abdominal adhesions in the upper abdomen. DESCRIPTION OF PROCEDURE: The patient was taken to the operating room where spinal anesthesia was induced. She was prepped and draped in a sterile fashion in the supine position, Mckeon catheter was placed. A Pfannenstiel skin incision was made with a scalpel and carried through to the fascia. The fascia was nicked and extended. The fascia was dissected off the rectus muscles, the peritoneal cavity was entered. Curvilinear incision made in the lower uterine segment until clear fluid was noted. This was extended manually. The infant was delivered in the vertex position without difficulty. The cord was doubly clamped and cut. The was handed off to the awaiting learning developer. Placenta was expressed. The uterus was exteriorized and cleared of clots and debris. The uterine incision was closed with #0 Vicryl in a running locked fashion. A second imbricating layer of #0 Vicryl was placed. Attention was turned to the fallopian tubes. The fallopian tubes were cross-clamped distal to the fimbriated end with a Chantal clamp. A segment of tube occluding the fimbria was excised. This was secured with #2-0 chromic suture. This was performed bilaterally. The uterus was placed back in the abdominal cavity. The peritoneum was closed with #2-0 Vicryl in a running fashion. The fascia was closed with #0 Vicryl, deep layer was irrigated. The skin was closed with a #4-0 Monocryl subcuticular suture. Sponge, instrument, and needle counts were correct.
[2019-07-09 23:10] VITALS: BP 141/67
[2019-07-10] VITALS (7 sets, daily range): BP systolic 101–148; BP diastolic 63–80
[2019-07-10] MEDS: guaiFENesin DM LIQ 10ML UD PO PRN ×2 (02:17→19:58)
[2019-07-10] MEDS: PERCOCET 5MG/325MG TAB PO PRN ×3 (02:17→20:02)
[2019-07-10 07:06] LABS: HEMATOCRIT 28.3 % (36.0-47.0); MEAN CORPUSCULAR HEMOGLOBIN 29.1 pg (27.0-33.0); MEAN CORPUSCULAR HGB CONC 31.8 g/dl (32.0-36.5); MEAN CORPUSCULAR VOLUME 91.6 fl (80.0-96.0); PLATELET COUNT, AUTOMATED 146 10^3/uL (150-450); RED BLOOD COUNT 3.09 10^6/uL (4.00-5.40); WHITE BLOOD COUNT 17.6 10^3/uL (4.0-10.0)
[2019-07-10] MEDS: PRENATAL VITAMINS CHEWABLE TABLET PO SCH (08:55)
[2019-07-10] MEDS: NICOTINE 14 MG/24 HR TRANSDERMAL TD SCH (08:55)
[2019-07-10] MEDS ORDERED: OXYC1TAB23 PO (08:55)
[2019-07-10] MEDS: OMEPRAZOLE 20 MG CAP PO SCH (19:58)
[2019-07-11] MEDS: guaiFENesin DM LIQ 10ML UD PO PRN (00:49)
[2019-07-11] MEDS: PERCOCET 5MG/325MG TAB PO PRN ×2 (00:50→10:00)
[2019-07-11 06:00] VITALS: BP 138/64
--- NOTE | 2019-07-11 08:55 | ECGEPIP ---
[facility] Test Date: 2019-07-09 Pat Name: ELLEN MAYFIELD Department: Room: [place] [address] Gender: Female Vocational Coordinator: : 1990 Requested By: DARRELL Colvin Order Number: [id number] Reading MD: Mahesh Park Measurements Intervals [place] Rate: 44 P: 75 AR: 142 QRS: 64 QRSD: 89 T: 59 QT: 497 QTc: 427 Interpretive Statements Sinus bradycardia with sinus arrhythmia Normal EKG No significant change when compared to prior tracing of 08/11/2018 Electronically Signed on 07-11-2019 8:55:05 EST by Mahesh Park
--- NOTE | 2019-07-11 09:24 | DS.PDOC ---
Discharge Summary General Date of Admission Jul 09, 2019 at 15:36 Date of Discharge 07/11/19 Discharge Summary PROCEDURES PERFORMED DURING STAY: repeat section with bilateral tubal ligation. ADMITTING DIAGNOSES: 1. Intrauterine growth restriction, 5% 2. Previous section DISCHARGE DIAGNOSES: 1. Repeat section with bilateral tubal ligation. 2. Intrauterine growth restriction COMPLICATIONS/CHIEF COMPLAINT: Repeat C/S. HISTORY OF PRESENT ILLNESS: 29 YO . Hx previous section x 2. Intrauterine growth restriction monitored through the . Admitted at 38w5d for repeat and BTL. HOSPITAL COURSE: Uneventful. DISCHARGE MEDICATIONS: Please see below. ALLERGIES: Please see below. PHYSICAL EXAMINATION ON DISCHARGE: VITAL SIGNS: Please see below. GENERAL: NAD HEENT: Intact NECK: Supple CARDIOVASCULAR EXAMINATION: HRR, normotensive RESPIRATORY EXAMINATION: Clear and unlabored ABDOMINAL EXAMINATION: + BS, fundus firm. Dressing intact with old drainage EXTREMITIES: Equal strength and motion SKIN: Intact NEUROLOGICAL EXAMINATION: Intact PSYCHIATRIC EXAMINATION: Appropriate LABORATORY DATA: Please see below. PROGNOSIS: Good ACTIVITY: As tolerated. Pelvic rest DIET: As tolerated DISCHARGE PLAN: Discharge home today. Routine precautions DISPOSITION: Home. DISCHARGE INSTRUCTIONS: 1. Continue oral medications as needed. 2. Pelvic rest. Call with fever, N/V, foul lochia or wound exudate 3. RTO 2wks and 6wks DISCHARGE CONDITION: Stable. Vital Signs/I&Os Vital Signs Date Time Temp Pulse Resp B/P (MAP) Pulse Ox O2 Delivery O2 Flow Rate FiO2 07/11/19 06:00 98.1 48 18 138/64 (88) 07/10/19 22:00 98 Room Air I&O- Last 24 Hours up to 6 AM 07/11/19 05:59 Intake Total 500 ml Output Total 750 ml Balance -250 ml Discharge Medications Scheduled Acetaminophen (Acetaminophen) 500 Mg Tablet, 2 TAB PO Q6H for fever, (Reported) Omeprazole (Omeprazole) 40 Mg Cap, 20 MG PO DAILY, (Reported) Vitamin D (Vitamin D3) 1,000 Unit Tablet, 1,000 UNITS PO DAILY, (Reported) Scheduled PRN Oxycodone HCl/Acetaminophen (Oxycodone-Acetaminophen 5-325) 1 Each Tablet, 1 TAB PO TIDP PRN for pain Allergies Coded Allergies: cefazolin (Verified Allergy, Mild, HIVES, 07/01/19) ibuprofen (Verified Adverse Reaction, Intermediate, DUE TO GASTRIC BYPASS, 07/01/19) Georgina Fong CNM Jul 11, 2019 09:18
[2019-07-11] MEDS: PRENATAL VITAMINS CHEWABLE TABLET PO SCH (10:00)
[2019-07-11] MEDS: NICOTINE 14 MG/24 HR TRANSDERMAL TD SCH (10:01)
[2019-07-16 08:12] LABS: Cannabinoid Positive (.); GC Carboxy THC 114 ng/mL (Cutoff=10)
== END 2019-07-11 12:30 | disposition home or self-care (01) | DRG 540 ==
LOC: M LDI 15:36 → M OBS 21:30
PROVIDERS: ADMIT Specialist; ATTEND Specialist
PROC: 0UB70ZZ Excision of Bilateral Fallopian Tubes, Open Approach (ICD-10-PCS; 2019-07-09)
PROC: 10D00Z1 Extraction of Products of Conception, Low, Open Approach (ICD-10-PCS; principal; 2019-07-09 18:30)
DX: O36.5930 Maternal care for other known or suspected poor fetal growth, third trimester, not applicable or unspecified (principal); F17.210 Nicotine dependence, cigarettes, uncomplicated; Z3A.38 38 weeks gestation of pregnancy; O34.211 Maternal care for low transverse scar from previous cesarean delivery; O99.844 Bariatric surgery status complicating childbirth; O99.334 Smoking (tobacco) complicating childbirth; Z30.2 Encounter for sterilization; Z37.0 Single live birth; Z90.49 Acquired absence of other specified parts of digestive tract; Z88.1 Allergy status to other antibiotic agents; Z88.8 Allergy status to other drugs, medicaments and biological substances

== ENCOUNTER 2019-09-15 18:34 | Emergency (ER) | payer OTHER ==
[~2019-09-15] VITALS: Ht 154.9 cm; Wt 53.5 kg
[2019-09-15 18:34] VITALS: BP 111/61
[~2019-09-15 18:34] MED LIST changes: +OMEP1CAP73 PO; -OMEP20CA4 PO; +OXYC1TAB23 PO
[2019-09-15 19:16] LABS: BASO # 0.1 10^3/uL (0.0-0.2); EOS # 0.4 10^3/uL (0.0-0.5); EOS % 6.8 % (0.0-3.0); HEMATOCRIT 36.1 % (36.0-47.0); HEMOGLOBIN 11.5 g/dl (12.0-15.5); LYMPH # 2.4 10^3/uL (1.5-5.0); LYMPH % 39.6 % (24.0-44.0); MEAN CORPUSCULAR HEMOGLOBIN 28.8 pg (27.0-33.0); MEAN CORPUSCULAR HGB CONC 31.9 g/dl (32.0-36.5); MEAN CORPUSCULAR VOLUME 90.5 fl (80.0-96.0); MONO # 0.4 10^3/uL (0.0-0.8); MONO % 7.3 % (0.0-5.0); NEUTROPHILS # 2.7 10^3/uL (1.5-8.5); NEUTROPHILS % 45.1 % (36.0-66.0); PLATELET COUNT, AUTOMATED 149 10^3/uL (150-450); RED BLOOD COUNT 3.99 10^6/uL (4.00-5.40)
[2019-09-15] MEDS ORDERED: PANTOPRAZOLE 40MG INJ (PROTONIX) (C9113) IV ONE (19:30)
[2019-09-15 19:47] LABS: ALBUMIN 3.5 GM/DL (3.2-5.2); ALT/SGPT 23 U/L (12-78); BILIRUBIN,DIRECT < 0.1 MG/DL (0.0-0.2); BILIRUBIN,TOTAL 0.3 MG/DL (0.2-1.0); BLOOD UREA NITROGEN 14 MG/DL (7-18); CALCIUM LEVEL 8.8 MG/DL (8.5-10.1); CARBON DIOXIDE LEVEL 25 MEQ/L (21-32); CHLORIDE LEVEL 109 MEQ/L (98-107); CREATININE FOR GFR 0.69 MG/DL (0.55-1.30); GLOMERULAR FILTRATION RATE > 60.0 (>60); GLUCOSE, FASTING 81 MG/DL (70-100); LIPASE 141 U/L (73-393); POTASSIUM SERUM 5.3 MEQ/L (3.5-5.1); SODIUM LEVEL 139 MEQ/L (136-145); TOTAL PROTEIN 7.1 GM/DL (6.4-8.2)
[2019-09-15] MEDS ORDERED: NS 1,000 ML IV ONE (20:00)
[2019-09-15 20:36] LABS: AMPHETAMINES LEVEL URINE NEGATIVE (NEGATIVE); BARBITURATES URINE NEGATIVE (NEGATIVE); BENZODIAZEPINES URINE NEGATIVE (NEGATIVE); CANNABINOIDS URINE POSITIVE (NEGATIVE); COCAINE METABOLITE URINE NEGATIVE (NEGATIVE); METHADONE URINE NEGATIVE (NEGATIVE); OPIATES URINE NEGATIVE (NEGATIVE); PHENCYCLIDINE URINE NEGATIVE (NEGATIVE)
--- NOTE | 2019-09-15 21:06 | REPVR ---
PROCEDURE INFORMATION: Exam: CT Abdomen And Pelvis Without Contrast Exam date and time: 09/15/2019 8:06 PM Age: 29 years old Clinical indication: Right flank pain, hematuria TECHNIQUE: Imaging protocol: Computed tomography of the abdomen and pelvis without contrast. Radiation optimization: All CT scans at this facility use at least one of these dose optimization techniques: automated exposure control; mA and/or kV adjustment per patient size (includes targeted exams where dose is matched to clinical indication); or iterative reconstruction. COMPARISON: CT ABD PELVIS W/O CONTRAST 05/27/2018 8:04 PM FINDINGS: Lungs: The imaged lung bases are clear. Heart: No cardiomegaly. No pericardial effusion. Liver: Unremarkable. No liver lesion is seen. The contour of the liver is smooth. No hepatomegaly is noted. Gallbladder and bile ducts: No calcified gallstones are seen. No gallbladder wall thickening, pericholecystic fluid, or pericholecystic inflammatory changes are identified. No dilation of the intrahepatic or extrahepatic bile ducts is noted. Pancreas: Unremarkable. No ductal dilation. Spleen: Unremarkable. No splenomegaly. Adrenals: Normal. No mass. Kidneys and ureters: The kidneys are unremarkable. No renal lesion is identified. No calculi are seen in the kidneys or ureters. There is no hydronephrosis or hydroureter. Stomach and bowel: Postoperative changes are noted from a Ml-en-Y gastric bypass surgery. There is no evidence for a bowel obstruction, diverticulosis, diverticulitis, colitis, pneumatosis intestinalis, intussusception, volvulus, or perforated viscus. Appendix: Normal. No evidence for appendicitis. Intraperitoneal space: Unremarkable. No fluid collection. No free air. Retroperitoneal space: Unremarkable. No fluid collection. No mass. Vasculature: No abdominal aortic aneurysm. Incidental note is made of small round calcifications in the pelvis, which are compatible with phleboliths. Lymph nodes: Normal. No enlarged lymph nodes. Bladder: Unremarkable. No calculi or masses are noted in the bladder. Reproductive: The uterus is anterverted and unremarkable. The ovaries are unremarkable. Bones/joints: The imaged bony structures are intact. There is no suspicious osteolytic or osteoblastic lesion. Soft tissues: There is a 1.8 cm cystic lesion in the left linea semilunaris (image 76 of the axial series 201). IMPRESSION: 1. No acute findings in the abdomen or pelvis. Normal appendix. 2. No stones in the kidneys, ureters, or urinary bladder. No hydronephrosis or hydroureter. Electronically signed by: Jose Joiner On 09/15/2019 21:05:49 PM
--- NOTE | 2019-09-16 01:26 | REP ---
Clinical: Pain. Technique: Neutral and frog lateral views of the right hip. Findings: Osseous structures, joint spaces, and surrounding soft tissues are normal for age. No acute fracture dislocation. No overt arthritic changes. Impression: Age-appropriate right hip radiographs. Electronically Signed by Butch Stewart MD 09/16/2019 01:18 A
--- NOTE | 2019-09-16 01:27 | REP ---
Clinical: Epigastric and abdominal pain. Technique: Upright view of the chest with supine and upright views of the abdomen and pelvis. Findings: Frontal upright view of the chest demonstrates no acute cardiopulmonary process or free air below the diaphragm to suspect pneumoperitoneum. Supine and upright views of the abdomen and pelvis demonstrate nonspecific bowel gas pattern without obstruction or perforation. Evidence of prior gastric surgery. No organomegaly. No abnormal calcifications. Skeletal structures normal for age. Impression: Nonspecific bowel gas pattern. Electronically Signed by Butch Stewart MD 09/16/2019 01:19 A
--- NOTE | 2019-09-16 10:15 | ECGEPIP ---
[facility] - ED Test Date: 2019-09-15 Pat Name: ELLEN MAYFIELD Department: Room: - Gender: Female Director Graphics: : 1990 Requested By: PRESTON Andrews PA-C Order Number: [id number] Reading MD: Sangita Mistry Measurements Intervals [place] Rate: 52 P: 57 MO: 144 QRS: 76 QRSD: 89 T: 52 QT: 440 QTc: 413 Interpretive Statements SINUS BRADYCARDIA INCREASSED RATE 07/09/19 Electronically Signed on 09-16-2019 10:15:25 EST by Sangita Mistry
== END 2019-09-15 22:00 | disposition left against medical advice (07) ==
LOC: M ED 18:34
DX: F12.10 Cannabis abuse, uncomplicated (principal); K21.9 Gastro-esophageal reflux disease without esophagitis; K27.9 Peptic ulcer, site unspecified, unspecified as acute or chronic, without hemorrhage or perforation; Z98.84 Bariatric surgery status; Z88.8 Allergy status to other drugs, medicaments and biological substances; F17.210 Nicotine dependence, cigarettes, uncomplicated
CPT/HCPCS: 73502; 74021; 74176; 80047; 80048; 80076; 80307; 81001; 83690; 84702; 85025; 93005; 96361; 96374; 99284; C9113

== ENCOUNTER 2019-11-28 05:18 | Emergency (ER) | payer OTHER ==
[~2019-11-28] VITALS: Ht 154.9 cm; Wt 52.3 kg
[2019-11-28] MEDS ORDERED: ACETAMINOPHEN 325 MG TAB PO ONE (06:15)
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
[2019-11-28 07:05] VITALS: BP 132/83
== END 2019-11-28 07:10 | disposition home or self-care (01) ==
LOC: M ED 05:18
DX: S02.2XXA Fracture of nasal bones, initial encounter for closed fracture (principal); W22.8XXA Striking against or struck by other objects, initial encounter; Y92.018 Other place in single-family (private) house as the place of occurrence of the external cause; J34.2 Deviated nasal septum; K21.9 Gastro-esophageal reflux disease without esophagitis; K27.9 Peptic ulcer, site unspecified, unspecified as acute or chronic, without hemorrhage or perforation; Z98.84 Bariatric surgery status; Z88.8 Allergy status to other drugs, medicaments and biological substances; F17.210 Nicotine dependence, cigarettes, uncomplicated

== ENCOUNTER → 2020-01-01 | Outpatient (REF) | payer OTHER, SELFPAY ==
[~2020-01-01] MED LIST changes: +OMEP10CASR PO
[2020-01-01 15:25] LABS: HEMATOCRIT 39.8 % (36.0-47.0); HEMOGLOBIN 12.4 g/dl (12.0-15.5); MEAN CORPUSCULAR HEMOGLOBIN 27.1 pg (27.0-33.0); MEAN CORPUSCULAR HGB CONC 31.2 g/dl (32.0-36.5); MEAN CORPUSCULAR VOLUME 86.9 fl (80.0-96.0); PLATELET COUNT, AUTOMATED 172 10^3/uL (150-450); RED BLOOD COUNT 4.58 10^6/uL (4.00-5.40); WHITE BLOOD COUNT 7.7 10^3/uL (4.0-10.0)
[2020-01-01 15:44] LABS: HEMOGLOBIN A1c 5.6 %
[2020-01-01 16:00] LABS: ALBUMIN 4.2 GM/DL (3.2-5.2); ALT/SGPT 21 U/L (12-78); BILIRUBIN,TOTAL 0.4 MG/DL (0.2-1.0); BLOOD UREA NITROGEN 14 MG/DL (7-18); CALCIUM LEVEL 9.5 MG/DL (8.5-10.1); CARBON DIOXIDE LEVEL 28 MEQ/L (21-32); CHLORIDE LEVEL 104 MEQ/L (98-107); CHOLESTEROL LEVEL 114 MG/DL (<200); CHOLESTEROL RISK RATIO 2.651 (<5); CREATININE FOR GFR 0.78 MG/DL (0.55-1.30); GLOMERULAR FILTRATION RATE > 60.0 (>60); GLUCOSE, FASTING 83 MG/DL (70-100); HDL CHOLESTEROL 43 MG/DL (>40); IRON (FE) 18 UG/DL (50-170); LDL CHOLESTEROL 54 MG/DL (<100); MAGNESIUM LEVEL 2.5 MG/DL (1.8-2.4); NON-HDL-C 71 MG/DL; PERCENT SATURATION 4.9 % (13.2-45.0); POTASSIUM SERUM 4.5 MEQ/L (3.5-5.1); SODIUM LEVEL 138 MEQ/L (136-145); TOTAL IRON BINDING CAPACITY 365 UG/DL (250-450); TRIGLYCERIDES LEVEL 87 MG/DL (<150)
[2020-01-01 16:06] LABS: VITAMIN B12 LEVEL 667 PG/ML (247-911)
== END ==
LOC: M SFHCPLAZ 14:24
DX: Z00.00 Encounter for general adult medical examination without abnormal findings (principal); Z98.84 Bariatric surgery status; D50.9 Iron deficiency anemia, unspecified

== ENCOUNTER → 2020-01-15 | Outpatient (CLI) | payer OTHER, SELFPAY | LOC: M LABSMTC 11:09 | PROVIDERS: ATTEND Anesthesiology | DX: Z01.818 Encounter for other preprocedural examination (principal); Z11.59 Encounter for screening for other viral diseases | CPT/HCPCS: C9803; U0003 ==

== ENCOUNTER 2020-01-18 09:59 | Day surgery (SDC) | payer OTHER ==
[~2020-01-18] VITALS: Ht 154.9 cm; Wt 44.4 kg
[~2020-01-18 09:59] MED LIST changes: +LIDOCAINE 1% MDV 20ML VIAL SQ PRN; +LIDOCAINE 2% 100MG/5ML SDV (FOR ANES.) As Ordered ONE; +LIDOCAINE W/EPINEPHRINE 1% 20ML VIAL As Ordered ONE; +MIDAZOLAM INJ 2MG/2ML VIAL (J2250 PER 1MG) As Ordered ONE; +ONDANSETRON 4MG/2ML VIAL As Ordered ONE; +OXYMETAZOLINE NASAL SPRAY (AFRIN) As Ordered ONE; +ROCURONIUM BROMIDE 50 MG/5 ML VIAL As Ordered ONE; +dexameTHASONE 4 MG/ML 1ML VIAL (J1100 PER 1MG) As Ordered ONE; +fentaNYL 100 MCG/2 ML INJECTION (J3010) As Ordered ONE; +propofoL 200 MG/20 ML VIAL As Ordered ONE
[2020-01-18] MEDS ORDERED: LR 1,000 ML IV ONE (10:45)
[2020-01-18] MEDS ORDERED: ACETAMINOPHEN 1000MG 100ML IV BTL (OFIRMEV) (J0131 PER 10MG) As Ordered ONE (12:10)
[2020-01-18] MEDS ORDERED: SUGAMMADEX SODIUM 500 MG/5 ML VIAL (BRIDION) As Ordered ONE (12:10)
[2020-01-18] MEDS ORDERED: SODIUM CHLORIDE 0.9% NASAL GEL 15GM (AYR) As Ordered ONE (12:11)
[2020-01-18] MEDS ORDERED: PERCOCET 5MG/325MG TAB PO PRN (13:15)
[2020-01-18] MEDS ORDERED: oxyCODONE 5MG TAB As Ordered ONE (13:16)
[2020-01-18] MEDS ORDERED: oxyCODONE 5MG TAB PO PRN (13:30)
[2020-01-18] MEDS ORDERED: LR 1,000 ML IV SCH (13:30)
[2020-01-18] MEDS ORDERED: ONDANSETRON 4MG/2ML VIAL IV PRN (13:30)
[2020-01-18] MEDS ORDERED: HYDROMORPHONE HCL 0.5 MG/ 0.5 ML SYRINGE (J1170 PER 1) IV PRN (13:30)
[2020-01-18] MEDS ORDERED: fentaNYL 100 MCG/2 ML INJECTION (J3010) IV PRN (13:30)
[2020-01-18 15:15] VITALS: BP 159/94
[2020-01-19] MEDS ORDERED: UNRESOLVED CLARIFICATION ENTRY XX SCH (00:01)
== END 2020-01-18 15:34 | disposition home or self-care (01) ==
LOC: M SDC 09:59
PROVIDERS: ATTEND Specialist
DX: J34.2 Deviated nasal septum (principal); J31.0 Chronic rhinitis; K21.9 Gastro-esophageal reflux disease without esophagitis; D64.9 Anemia, unspecified; F32.9 Major depressive disorder, single episode, unspecified; F41.9 Anxiety disorder, unspecified; Z79.899 Other long term (current) drug therapy; Z98.84 Bariatric surgery status; Z88.1 Allergy status to other antibiotic agents; Z88.8 Allergy status to other drugs, medicaments and biological substances; Z87.891 Personal history of nicotine dependence
CPT/HCPCS: 30140; 30520; 88300; J0131; J1100; J2250; J2405; J3010

== ENCOUNTER → 2020-04-28 | Outpatient (CLI) | payer MEDICAID, OTHER, SELFPAY ==
[~2020-04-28] MED LIST changes: +CIPR-249 PO; -LIDOCAINE 1% MDV 20ML VIAL SQ PRN; -LIDOCAINE 2% 100MG/5ML SDV (FOR ANES.) As Ordered ONE; -LIDOCAINE W/EPINEPHRINE 1% 20ML VIAL As Ordered ONE; +METR-265; -MIDAZOLAM INJ 2MG/2ML VIAL (J2250 PER 1MG) As Ordered ONE; +NICO21DI37; +OMEP-221; +ONDA4TAB6 PO; -ONDANSETRON 4MG/2ML VIAL As Ordered ONE; -OXYMETAZOLINE NASAL SPRAY (AFRIN) As Ordered ONE; -ROCURONIUM BROMIDE 50 MG/5 ML VIAL As Ordered ONE; -dexameTHASONE 4 MG/ML 1ML VIAL (J1100 PER 1MG) As Ordered ONE; -fentaNYL 100 MCG/2 ML INJECTION (J3010) As Ordered ONE; -propofoL 200 MG/20 ML VIAL As Ordered ONE
[2020-04-28 14:47] LABS: HEPATITIS C VIRUS ABY INDEX 0.3 INDEX (<0.8); HIV 1&2 SCREEN CENTAUR NEGATIVE (NEGATIVE)
[2020-04-28 21:31] LABS: CHLAMYDIA DNA AMPLIFICATION NEGATIVE (NEGATIVE); GC DNA AMPLIFICATION NEGATIVE (NEGATIVE)
== END ==
LOC: M PLALAB 10:07
PROVIDERS: ATTEND Advanced Practice Midwife
DX: Z12.4 Encounter for screening for malignant neoplasm of cervix (principal); Z11.3 Encounter for screening for infections with a predominantly sexual mode of transmission

== ENCOUNTER 2020-05-05 18:04 | Emergency (ER) | payer MEDICAID, OTHER, SELFPAY ==
[~2020-05-05] VITALS: Ht 154.9 cm; Wt 45.7 kg
[~2020-05-05 18:04] MED LIST changes: -CIPR-249 PO; -METR-265; -NICO21DI37; -OMEP-221; -ONDA4TAB6 PO
[2020-05-05] MEDS ORDERED: METR-265 (18:13)
[2020-05-05] MEDS ORDERED: OMEP-221 (18:13)
[2020-05-05] MEDS ORDERED: NICO21DI37 (18:13)
[2020-05-05] MEDS ORDERED: NS 1,000 ML IV ONE (19:00)
[2020-05-05 19:29] LABS: BASO # 0.1 10^3/uL (0.0-0.2); BASO % 1.2 % (0.0-1.0); EOS # 0.2 10^3/uL (0.0-0.5); HEMATOCRIT 32.6 % (36.0-47.0); HEMOGLOBIN 9.5 g/dl (12.0-15.5); LYMPH # 2.8 10^3/uL (1.5-5.0); LYMPH % 37.4 % (24.0-44.0); MEAN CORPUSCULAR HEMOGLOBIN 22.2 pg (27.0-33.0); MEAN CORPUSCULAR HGB CONC 29.1 g/dl (32.0-36.5); MEAN CORPUSCULAR VOLUME 76.3 fl (80.0-96.0); MONO # 0.6 10^3/uL (0.0-0.8); MONO % 7.5 % (0.0-5.0); NEUTROPHILS # 3.9 10^3/uL (1.5-8.5); NEUTROPHILS % 50.6 % (36.0-66.0); PLATELET COUNT, AUTOMATED 154 10^3/uL (150-450); RED BLOOD COUNT 4.27 10^6/uL (4.00-5.40); WHITE BLOOD COUNT 7.6 10^3/uL (4.0-10.0)
[2020-05-05 19:38] LABS: ALBUMIN 3.8 GM/DL (3.2-5.2); ALT/SGPT 22 U/L (12-78); BILIRUBIN,DIRECT < 0.1 MG/DL (0.0-0.2); BILIRUBIN,TOTAL 0.2 MG/DL (0.2-1.0); LIPASE 172 U/L (73-393); TOTAL PROTEIN 7.3 GM/DL (6.4-8.2)
[2020-05-05] MEDS: GASTROGRAFIN SOLUTION 30ML PO SCH ×2 (19:41→20:17)
[2020-05-05] MEDS ORDERED: ISOVUE-370 76% 100ML VIAL As Ordered ONE (20:46)
[2020-05-05] MEDS ORDERED: MORPHINE 4 MG/ML 1ML VIAL/SYRINGE (J2270) IV ONE (21:30)
--- NOTE | 2020-05-05 21:31 | REPVR ---
PROCEDURE INFORMATION: Exam: CT Abdomen And Pelvis With Contrast Exam date and time: 05/05/2020 8:54 PM Age: 30 years old Clinical indication: Abdominal pain; Localized; Left; Additional info: Left sided abd pain, nausea, HX mult. Sbos, gastric bypass TECHNIQUE: Imaging protocol: Computed tomography of the abdomen and pelvis with intravenous contrast. Radiation optimization: All CT scans at this facility use at least one of these dose optimization techniques: automated exposure control; mA and/or kV adjustment per patient size (includes targeted exams where dose is matched to clinical indication); or iterative reconstruction. Contrast material: ISOVUE 370; Contrast volume: 100 ml; Contrast route: INTRAVENOUS (IV); COMPARISON: CT ABD PELVIS W/O CONTRAST 09/15/2019 8:03 PM FINDINGS: Liver: There are some low-attenuation foci in the liver measuring up to 11 mm with a Hounsfield measurement of 54 which are nonspecific. The liver attenuation is 102 Hounsfield units and the spleen is 139 Hounsfield units. Gallbladder and bile ducts: The gallbladder is somewhat contracted with no stones. Pancreas: Top-normal pancreatic duct through most of the course measuring 4 mm measuring 7 mm distally at the ampulla with no calculus or mass. Spleen: Normal. No splenomegaly. Adrenals: Normal. No mass. Kidneys and ureters: Normal. No hydronephrosis. Stomach and bowel: There has been gastric bypass with mild fluid in the fundus and body of the bypassed stomach. Short segment of small bowel intussusception deep into the right of the umbilicus measuring 2.2 cm in length and involves the bypass the segment from the gastric bypass. There is question of some wall thickening of the small bowel proximal to the intussusception. Contrast is noted distal with question of slight fold thickening. Appendix: A normal appendix is seen. Intraperitoneal space: Unremarkable. No free air. No significant fluid collection. Vasculature: Unremarkable. No abdominal aortic aneurysm. Lymph nodes: Unremarkable. No enlarged lymph nodes. Bladder: Unremarkable as visualized. Reproductive: Right ovarian cyst measuring 2.8 x 2.0 x 2.3 cm. Bones/joints: Unremarkable. No acute fracture. Soft tissues: A soft tissue nodule is noted along the left linea semilunaris measuring 11 x 15 x 16 mm and appears more solid compared to a more cystic appearance previously. IMPRESSION: 1. Status post gastric bypass with mild fluid in the fundus and body of the bypassed stomach which may be seen with some relative obstruction and is increased since 09/15/2019. 2. Short segment of intussusception involving the bypass segment of small bowel measuring 2.2 cm in length and is just deep and to the right of the umbilicus. There is suggestion of enteritis involving the bypassed segment with wall thickening proximal to the intussusception and question of some fold thickening more distally. 3. Nonspecific small low-attenuation foci in the liver. 4. Top-normal size of most of the pancreatic duct with dilatation distally measuring up to 7 mm distally to the level of the ampulla with no distal calculus or mass and of uncertain etiology. 5. Right ovarian cyst measuring 2.8 x 2.0 x 2.3 cm. 6. Small soft tissue nodule of the left linea semilunaris measuring 11 x 15 x 16 mm and appears less cystic since the prior study and is slightly decreased in size. Electronically signed by: Eron Rome On 05/05/2020 21:30:57 PM
[2020-05-05] MEDS ORDERED: CIPROFLOXACIN 500MG TABLET PO ONE (22:15)
[2020-05-05] MEDS ORDERED: CIPR-249 PO (23:05)
[2020-05-05] MEDS ORDERED: ONDA4TAB6 PO (23:05)
[2020-05-05 23:11] VITALS: BP 143/77
[2020-05-05] MEDS ORDERED: NORCO 5/325MG TABLET (BULK FOR ED) PO ONE (23:15)
--- NOTE | 2020-05-07 15:03 | ED PDOC ---
Post-Departure Follow-Up certiifed letter sent to pt re formal read of ct abd/p kiana fu. obtain bariatric surgeron name and fax number and fax for fu Isabela Garcia MD May 07, 2020 15:02
== END 2020-05-05 23:28 | disposition home or self-care (01) ==
LOC: M ED 18:04
DX: K52.9 Noninfective gastroenteritis and colitis, unspecified (principal); K21.9 Gastro-esophageal reflux disease without esophagitis; F17.200 Nicotine dependence, unspecified, uncomplicated; Z79.2 Long term (current) use of antibiotics; Z79.899 Other long term (current) drug therapy; Z88.8 Allergy status to other drugs, medicaments and biological substances; Z98.0 Intestinal bypass and anastomosis status; Z87.19 Personal history of other diseases of the digestive system; Z98.890 Other specified postprocedural states
CPT/HCPCS: 74177; 80047; 80076; 81001; 83605; 83690; 85025; 96361; 96374; 99284; J2270; Q9963; Q9967

== ENCOUNTER → 2020-11-14 | Outpatient (CLI) | payer SELFPAY ==
[~2020-11-14] MED LIST changes: +CIPR-249 PO; +FERR325T18; +METR-265; +NICO21DI37; +OMEP-221; +ONDA4TAB6 PO
== END ==
LOC: M LABSMTC 09:32
PROVIDERS: ATTEND Pediatrics
DX: Z20.822 Contact with and (suspected) exposure to COVID-19 (principal)

== ENCOUNTER 2020-11-18 07:31 | Day surgery (SDC) | payer OTHER ==
[~2020-11-18] VITALS: Ht 154.9 cm; Wt 48.1 kg
[~2020-11-18 07:31] MED LIST changes: +LIDOCAINE 1% MDV 20ML VIAL SQ PRN; +LR 1,000 ML IV ONE; +LevoFLOXacin IV 500 MG in IV 1 EA IV ONE
[2020-11-18 07:52] LABS: HEMATOCRIT 39.9 % (36.0-47.0); HEMOGLOBIN 12.4 g/dl (12.0-15.5); MEAN CORPUSCULAR HEMOGLOBIN 28.6 pg (27.0-33.0); MEAN CORPUSCULAR HGB CONC 31.1 g/dl (32.0-36.5); MEAN CORPUSCULAR VOLUME 92.1 fl (80.0-96.0); PLATELET COUNT, AUTOMATED 136 10^3/uL (150-450); RED BLOOD COUNT 4.33 10^6/uL (4.00-5.40); WHITE BLOOD COUNT 4.1 10^3/uL (4.0-10.0)
[2020-11-18] MEDS ORDERED: dexameTHASONE 4 MG/ML 1ML VIAL (J1100 PER 1MG) As Ordered ONE (07:56)
[2020-11-18] MEDS ORDERED: ROCURONIUM BROMIDE 50 MG/5 ML VIAL As Ordered ONE (07:56)
[2020-11-18] MEDS ORDERED: propofoL 200 MG/20 ML VIAL As Ordered ONE (07:56)
[2020-11-18] MEDS ORDERED: LIDOCAINE 2% 100MG/5ML SDV (FOR ANES.) As Ordered ONE (07:56)
[2020-11-18] MEDS ORDERED: ONDANSETRON 4MG/2ML VIAL As Ordered ONE (07:56)
[2020-11-18] MEDS ORDERED: KETOROLAC 60MG 2ML VIAL As Ordered ONE (07:56)
[2020-11-18] MEDS ORDERED: ACETAMINOPHEN 1000MG 100ML IV BTL (OFIRMEV) (J0131 PER 10MG) As Ordered ONE (07:56)
[2020-11-18] MEDS ORDERED: LACRILUBE (AKWA TEARS) OPHTH OINT 3.5 GM As Ordered ONE (07:56)
[2020-11-18] MEDS ORDERED: fentaNYL 100 MCG/2 ML INJECTION (J3010) As Ordered ONE (07:57)
[2020-11-18] MEDS ORDERED: MIDAZOLAM INJ 2MG/2ML VIAL (J2250 PER 1MG) As Ordered ONE (07:57)
[2020-11-18] MEDS ORDERED: LIDOCAINE 1% SDV 30ML VIAL As Ordered ONE (08:57)
[2020-11-18] MEDS ORDERED: BUPIVACAINE HCL 0.25% 30ML VIAL As Ordered ONE (08:58)
[2020-11-18] MEDS ORDERED: SUGAMMADEX SODIUM 500 MG/5 ML VIAL (BRIDION) As Ordered ONE (10:08)
[2020-11-18] MEDS ORDERED: oxyCODONE 5MG TAB PO PRN (10:50)
[2020-11-18] MEDS ORDERED: HYDROMORPHONE HCL 0.5 MG/ 0.5 ML SYRINGE (J1170 PER 1) IV PRN (10:50)
[2020-11-18] MEDS ORDERED: LR 1,000 ML IV SCH (10:50)
[2020-11-18] MEDS ORDERED: NORCO, ANEXSIA 5/325MG TABLET (HYDROcodone/ACETAMINOPHEN) PO PRN (10:50)
[2020-11-18] MEDS ORDERED: ONDANSETRON 4MG/2ML VIAL IV PRN ×2 (10:50→10:55)
[2020-11-18] MEDS ORDERED: fentaNYL 100 MCG/2 ML INJECTION (J3010) IV PRN (10:50)
[2020-11-18 12:30] VITALS: BP 123/70
--- NOTE | 2020-11-28 10:27 | ROOPDOC ---
[facility] Report Of Operation Report of Operation DATE OF PROCEDURE: 11/18/20 PREPROCEDURE DIAGNOSES: Left spigelian/incisional hernia. POSTPROCEDURE DIAGNOSES: Same. PROCEDURE: Open Primary repair of left beginning/incisional hernia. SURGEON: Khoa Thorpe MD NEUROLOGY MANAGER: ANESTHESIA: General Anesthesia. ESTIMATED BLOOD LOSS: Approximately 20 mL. COMPLICATIONS: none REMARKS: small bulging defect (roughly 2 cms) in between the lateral border of the rectus abdominis muscle and the lateral obliques from prior port site from her previous surgeries. . DESCRIPTION OF PROCEDURE: Patient received levofloxacin 500 mg IV for wound prophylaxis. She was brought to the operating room, placed supine on the table. TEDs and bilateral sequential compression devices placed and her lower extremities were DVT prophylaxis. Gen. endotracheal anesthesia started. Her abdomen then widely prepped and draped in usual sterile fashion particular attention over the left of the abdomen.We paused for a surgical timeout using both pre-incision safety checklist to verify correct patient, procedure site and additional clinical information prior to beginning the procedure Patient has had multiple surgeries including gastric bypass, revision of her ga stric bypass and anastomotic ulcer with perforation twice. During one of these surgeries there was a drain was left through the left lower abdomen and patient reports that they have difficulty drain. Several months after patient has noted a bulging over the prior drain site/laparoscopic site was and this pulse along the spigelian line consistent with an incisional spigelian hernia. She has a very thin body habitus and loose skin from her weight loss. I had marked the area of the lower abdominal wall hernia in the preop area with her standing and supine as the looseness of the skin where the bulge can be palpated. This liberally infiltrated with a mixture of 1% lidocaine and 14% Marcaine. A transverse incision was then created on top of the bulging and deepe kelsie through to the subcutaneous tissue. The fascial edge for lateral margin of the rectus muscle and obliques meet this located and no clear bulging is noted with her breathing roughly about the size of my thumb. This was dissected circumferentially to release the fascia surrounding it. With her preoperative discussion patient would like to avoid placement of mesh if possible. We then closed the fascial opening with interrupted mattress sutures using #2 PDS. This came together well and was holding up with the patient receiving increased pressure with her breathing from anesthesia to test the closure. After ensuring adequate hemostasis. The subcutaneous tissue was brought together with 3-0 Vicryl and the skin was closed with 4-0 Monocryl in a subcuticular f ashion. Steri-Strips and gauze dressings and Tegaderm in place top of the incision. Patient tolerated the procedure well. She was promptly awakened, extubated and brought to recovery room in stable condition. KHOA THORPE MD Nov 28, 2020 10:27
== END 2020-11-18 12:30 | disposition home or self-care (01) ==
LOC: M SDC 07:31
PROVIDERS: ATTEND Surgery
DX: K43.2 Incisional hernia without obstruction or gangrene (principal); D64.9 Anemia, unspecified; M92.42 Juvenile osteochondrosis of patella, left knee; F17.290 Nicotine dependence, other tobacco product, uncomplicated; Z79.899 Other long term (current) drug therapy; F32.9 Major depressive disorder, single episode, unspecified; F41.9 Anxiety disorder, unspecified; Z88.1 Allergy status to other antibiotic agents; Z88.8 Allergy status to other drugs, medicaments and biological substances
CPT/HCPCS: 36415; 49560; 85027; J0131; J1100; J1956; J2250; J2405; J3010

== ENCOUNTER → 2021-01-24 | Outpatient (REF) | payer OTHER ==
[~2021-01-24] MED LIST changes: -LIDOCAINE 1% MDV 20ML VIAL SQ PRN; -LR 1,000 ML IV ONE; -LevoFLOXacin IV 500 MG in IV 1 EA IV ONE
[2021-01-24 15:41] LABS: HEMATOCRIT 40.1 % (36.0-47.0); HEMOGLOBIN 12.3 g/dl (12.0-15.5); MEAN CORPUSCULAR HEMOGLOBIN 28.8 pg (27.0-33.0); MEAN CORPUSCULAR HGB CONC 30.7 g/dl (32.0-36.5); MEAN CORPUSCULAR VOLUME 93.9 fl (80.0-96.0); PLATELET COUNT, AUTOMATED 127 10^3/uL (150-450); RED BLOOD COUNT 4.27 10^6/uL (4.00-5.40); WHITE BLOOD COUNT 6.3 10^3/uL (4.0-10.0)
[2021-01-24 16:02] LABS: ALT/SGPT 28 U/L (12-78); BILIRUBIN,TOTAL 0.2 MG/DL (0.2-1.0); BLOOD UREA NITROGEN 11 MG/DL (7-18); CALCIUM LEVEL 8.9 MG/DL (8.5-10.1); CARBON DIOXIDE LEVEL 30 MEQ/L (21-32); CHLORIDE LEVEL 108 MEQ/L (98-107); CREATININE FOR GFR 0.68 MG/DL (0.55-1.30); FERRITIN 9 NG/ML (8-252); GLOMERULAR FILTRATION RATE > 60.0 (>60); GLUCOSE, FASTING 76 MG/DL (70-100); IRON (FE) 21 UG/DL (50-170); MAGNESIUM LEVEL 2.4 MG/DL (1.8-2.4); POTASSIUM SERUM 4.5 MEQ/L (3.5-5.1); SODIUM LEVEL 141 MEQ/L (136-145); TOTAL PROTEIN 7.1 GM/DL (6.4-8.2)
== END ==
LOC: M SFHCPLAZ 14:14
PROVIDERS: ATTEND Family Medicine
DX: Z00.00 Encounter for general adult medical examination without abnormal findings (principal); K21.9 Gastro-esophageal reflux disease without esophagitis; D50.9 Iron deficiency anemia, unspecified; Z98.84 Bariatric surgery status